=== PATIENT | male | born 1925 | race Caucasian/White ===

== ENCOUNTER 2016-10-03 10:30 | Inpatient (IN) ==
[2016-10-03] MEDS ORDERED: Pantoprazole 40 MG VIAL IVP ONE (10:59)
--- NOTE | 2016-10-03 10:59 | Emergency Department Note ---
START Narrative - START START: Patient presents from home with and son for evaluation of rectal bleeding. The patient has Hx of dementia and is very quiet / reserved. He will answer questions with "thumbs up" or a turning of the head, but does not talk unless his son reminds him to "use words." Patient's provides the majority of the history. She states that yesterday at a restaurant the patient got up and there was blood on the chair and on his pants. He has had no complaints of pain and denies diarrhea. His states that two days ago he had diarrhea but had non yesterday or today. Patient denies pain, nausea or vomiting. He has had no recent fever per family. He has not had anything to eat today. On exam he is mildly hypertensive with normal pulse rate. He has an irregularly irregular rhythm. His O2 sats are a little low; breath sounds are clear with the exception of faint crackles in the bases - bilaterally. Abdomen is soft, non- tender, non-distended, without guarding. Bowel sounds are hyperactive x 4 quads. He moves all four extremities and has no peripheral edema. He will require lab testing. Case was discussed with the oncoming provider, Dr. Qureshi. He will take over care of the patient.
--- NOTE | 2016-10-03 11:10 | Emergency Department Note ---
Disposition Clinical Impression: Frail elderly, Elevated troponin, Atrial fibrillation, Abnormal liver function tests, Lower gastrointestinal hemorrhage, Abdominal pain, Thrombocytopenia, Hyperkalemia, Prostatic disease, Pleural effusion, Bladder wall thickening, Left bundle branch block Disposition: Admitted As Inpatient Referrals: NO,PCP [Non-Partnered Physician] - Forms: ED Satisfaction Letter General Adult HPI - General Chief complaint: ED GI Bleed Stated complaint: Rectal Bleeding Time Seen by Provider: 10/03/16 10:38 Source: patient, family Limitations: no limitations - History of Present Illness HPI Narrative: 89-year-old male reports to the emergency department, there is concern for bright red blood per rectum which started last evening. The patient does not take blood thinners. He denies any abdominal pain or vomiting. The family noticed bright red blood on his pants and the CT he was sitting on and they described a "pool of blood". I spoke with a physician friend of theirs who thought the patient could be watched at home but there has been some recurrent bleeding so the family brought the patient in for evaluation. Patient denies any chest pain or shortness of breath. There is no history of fall or trauma. The patient has had no acute confusion. No difficulty moving the arms or legs independently. Is no history of back pain fever or cough. Essentially bright red blood per rectum is the main complaint. No other complaints or concerns are noted. Pain Scale: 0 - Related Data Home Medications Medication Instructions Recorded Confirmed Atorvastatin [Lipitor] 10 mg PO HS 01/28/16 05/04/16 Donepezil HCl [Donepezil HCl Odt] 10 mg PO HS 01/28/16 05/04/16 Irbesartan [Avapro] 150 mg PO DAILY 01/28/16 05/04/16 Losartan [Cozaar] 25 mg PO DAILY 01/28/16 05/04/16 Memantine [Namenda] 10 mg PO DAILY 01/28/16 05/04/16 Metoprolol [Lopressor] 25 mg PO DAILY 01/28/16 05/04/16 Multivitamin/Iron/Folic Acid 1 each PO DAILY 01/28/16 05/04/16 [Centrum Complete Multivit Tab] Omeprazole [PriLOSEC] 20 mg PO DAILY 01/28/16 05/04/16 [place]-3/Dha/Epa/Fish Oil [Fish Oil 1 each PO DAILY 05/04/16 05/04/16 1,000 mg Softgel] Tri-B 1 each PO DAILY 05/04/16 05/04/16 Previous Rx's Medication Instructions Recorded Nitrofurantoin (BID) [Macrobid] 100 mg PO BID #28 capsule 05/08/16 Cephalexin [Keflex] 500 mg PO QID 10 Days 08/18/16 Allergies Allergy/AdvReac Type Severity Reaction Status Date / Time levofloxacin [From Levaquin] Allergy See Verified 01/20/16 13:09 Comments All systems ED: reviewed and negative except as stated. Past Medical History - Past Medical History Medical history: Reports: atrial fibrillation, CVA, dementia, hypertension, other Psychiatric history: Reports: no psych history - Social History Smoking Status: Former smoker Smokeless Tobacco Status: No Alcohol use: Reports: rarely Drug use: Reports: none Physical Exam - General Limitations: no limitations General appearance: alert, in no apparent distress - Head Head exam: atraumatic, normocephalic, normal inspection - Eye Eye exam: Present: normal appearance, EOMI, miosis - ENT ENT exam: normal exam, normal oropharynx, mucous membranes moist, normal external ear exam - Neck Neck exam: Present: normal inspection, full ROM, trachea midline. Absent: tenderness - Chest Chest inspection: Present: symmetric chest wall rise. Absent: tenderness - Respiratory Respiratory exam: Present: normal lung sounds bilaterally. Absent: respiratory distress - Cardiovascular Cardiovascular exam: Present: regular rate, irregular rhythm - Abdominal Exam Abdominal exam: Present: soft, tenderness. Absent: distention, guarding, rebound, rigidity Abdominal tenderness: Present: LLQ, suprapubic, moderate - Rectal Exam Rectal exam: Present: normal rectal tone, heme (+) stool, hemorrhoids, other - Male exam: Present: scrotal swelling (The patient appears to have internal hemorrhoids. Not fully prolapsed but palpable, no active bleeding appreciated.) - Extremities Exam Extremities exam: Present: normal inspection, full ROM, normal capillary refill. Absent: tenderness, pedal edema, joint swelling, calf tenderness - Expanded Lower Extremity Exam Lower leg exam: Absent: Homans' sign - Back Exam Back exam: Present: normal inspection, full ROM. Absent: tenderness, CVA tenderness (R), CVA tenderness (L), vertebral tenderness - Neurological Exam Neurological exam: Present: alert, oriented X3, CN II-XII intact. Absent: motor sensory deficit - Psychiatric Psychiatric exam: Present: normal affect, normal mood - Skin Skin exam: Present: warm, dry, intact, normal color, pallor. Absent: rash, cyanosis, diaphoresis, erythema, mottled Course Vital Signs Temperature 97.0 F L 10/03/16 10:31 Pulse Rate 70 10/03/16 10:31 Respiratory Rate 16 10/03/16 10:31 Blood Pressure 148/90 10/03/16 10:31 O2 Sat by Pulse Oximetry 94 L 10/03/16 10:31 Temperature 97.0 F L 10/03/16 10:31 Pulse Rate 69 10/03/16 12:55 Respiratory Rate 15 10/03/16 12:55 Blood Pressure 172/86 10/03/16 12:55 O2 Sat by Pulse Oximetry 97 10/03/16 12:55 Oxygen Delivery Oxygen Delivery Nasal Cannula Medical Decision Making - MDM Narrative Medical decision making narrative: Patient is apparently stable from a GI bleeding standpoint, his hemoglobin is negative. He had some abdominal pain, CT was initiated and there are pleural effusions noted on the coke drawer film, substance CT was obtained to evaluate further. The patient appears to have bilateral pleural effusions, his BNP is very high. He is somewhat hypoxemic. The patient also has abnormalities noted on his prostate which may be affecting the bladder. His liver function tests are abnormal which may be related. The patient has new onset EKG changes with an elevated troponin and apparent new left bundle-branch block, the Scarb[place] criteria is negative. The patient denies any chest pain. Given he has had some rectal bleeding we will defer antiplatelet therapy to the hospitalist. Based on his age, frailty, and multiple acute findings, I thought it would be appropriate to admit the patient to the hospital. The effusions may be secondary to CHF or possible malignancy. They did not appear to be infectious in nature based on his testing and vital signs. Antibiotic therapy was not initiated. Blood cultures were ordered. I consulted the hospitalist on-call. - Lab Data Lab results reviewed: Yes I reviewed the patient's lab results. Result diagrams: 10/03/16 11:19 10/03/16 11:19 Lab Results 10/03/16 10/03/16 10/03/16 Range/Units 11:17 11:19 11:19 WBC 5.5 (4.3-11.1) K/mcL RBC 4.52 (4.19-5.50) M/mcL Hgb 15.5 (12.9-16.9) g/dL Hct 46.9 (37.5-50.1) % MCV 103.8 H (83.0-100.0) fL MCH 34.3 H (28.0-33.3) pg MCHC 33.0 (31.6-35.5) g/dL RDW 14.3 (11.5-14.5) % Plt Count 132 L (140-400) K/mcL MPV 10.1 (9.4-12.4) fL Immature Gran % 0.2 (0-4) % Seg Neutrophils % 53.2 % Lymphocytes % 32.1 % Monocytes % 8.6 % Eosinophils % 4.6 % Basophils % 1.3 % Neutrophils # 2.9 (1.6-8.9) K/mcL Lymphocytes # 1.8 (0.6-4.6) K/mcL Monocytes # 0.5 (0.0-1.3) K/mcL Eosinophils # 0.3 (0.0-0.6) K/mcL Basophils # 0.1 (0.0-0.2) K/mcL PT 13.1 H (9.4-12.1) Seconds INR 1.2 APTT 33.4 (26.0-36.0) Seconds Sodium (136-145) mEq/L Potassium (3.5-4.5) mEq/L Chloride (98-109) mEq/L Carbon Dioxide (19-29) mEq/L BUN (8-26) mg/dL Creatinine (0.72-1.25) mg/dL Est GFR ( Amer) (> 60) Est GFR (Non-Af Amer) (> 60) BUN/Creatinine Ratio (6-26) Glucose (70-99) mg/dL Calculated Osmolality (280-300) Lactic Acid (0.5-2.2) mmol/L Calcium (8.6-10.8) mg/dL Magnesium (1.6-2.6) mg/dL Total Bilirubin (0.2-1.2) mg/dL Direct Bilirubin 0.7 H (0.0-0.5) mg/dL AST (5-34) Units/L ALT (0-55) Units/L Alkaline Phosphatase (38-126) Units/L Troponin I (0-0.03) ng/mL C-Reactive Protein (Less than 5) mg/L B-Natriuretic Peptide (0-100) pg/mL Serum Total Protein (6.0-8.3) g/dL Albumin (3.5-5.0) g/dL Globulin (2.4-3.5) g/dL Albumin/Globulin Ratio (1.1-2.2) Lipase (8-78) Units/L Stool Occult Blood (Negative) Blood Type Antibody Screen 10/03/16 10/03/16 10/03/16 Range/Units 11:19 11:19 11:19 WBC (4.3-11.1) K/mcL RBC (4.19-5.50) M/mcL Hgb (12.9-16.9) g/dL Hct (37.5-50.1) % MCV (83.0-100.0) fL MCH (28.0-33.3) pg MCHC (31.6-35.5) g/dL RDW (11.5-14.5) % Plt Count (140-400) K/mcL MPV (9.4-12.4) fL Immature Gran % (0-4) % Seg Neutrophils % % Lymphocytes % % Monocytes % % Eosinophils % % Basophils % % Neutrophils # (1.6-8.9) K/mcL Lymphocytes # (0.6-4.6) K/mcL Monocytes # (0.0-1.3) K/mcL Eosinophils # (0.0-0.6) K/mcL Basophils # (0.0-0.2) K/mcL PT (9.4-12.1) Seconds INR APTT (26.0-36.0) Seconds Sodium 145 (136-145) mEq/L Potassium 4.9 H (3.5-4.5) mEq/L Chloride 109 (98-109) mEq/L Carbon Dioxide 28 (19-29) mEq/L BUN 20 (8-26) mg/dL Creatinine 1.10 (0.72-1.25) mg/dL Est GFR ( Amer) > 60 (> 60) Est GFR (Non-Af Amer) > 60 (> 60) BUN/Creatinine Ratio 18 (6-26) Glucose 97 (70-99) mg/dL Calculated Osmolality 303 H (280-300) Lactic Acid (0.5-2.2) mmol/L Calcium 9.9 (8.6-10.8) mg/dL Magnesium 1.8 (1.6-2.6) mg/dL Total Bilirubin 1.6 H (0.2-1.2) mg/dL Direct Bilirubin (0.0-0.5) mg/dL AST 44 H (5-34) Units/L ALT 31 (0-55) Units/L Alkaline Phosphatase 184 H (38-126) Units/L Troponin I (0-0.03) ng/mL C-Reactive Protein 2 (Less than 5) mg/L B-Natriuretic Peptide 804 H (0-100) pg/mL Serum Total Protein 7.1 (6.0-8.3) g/dL Albumin 3.3 L (3.5-5.0) g/dL Globulin 3.8 H (2.4-3.5) g/dL Albumin/Globulin Ratio 0.9 L (1.1-2.2) Lipase 24 (8-78) Units/L Stool Occult Blood (Negative) Blood Type A POSITIVE Antibody Screen NEGATIVE 10/03/16 10/03/16 10/03/16 Range/Units 11:21 11:46 12:25 WBC (4.3-11.1) K/mcL RBC (4.19-5.50) M/mcL Hgb (12.9-16.9) g/dL Hct (37.5-50.1) % MCV (83.0-100.0) fL MCH (28.0-33.3) pg MCHC (31.6-35.5) g/dL RDW (11.5-14.5) % Plt Count (140-400) K/mcL MPV (9.4-12.4) fL Immature Gran % (0-4) % Seg Neutrophils % % Lymphocytes % % Monocytes % % Eosinophils % % Basophils % % Neutrophils # (1.6-8.9) K/mcL Lymphocytes # (0.6-4.6) K/mcL Monocytes # (0.0-1.3) K/mcL Eosinophils # (0.0-0.6) K/mcL Basophils # (0.0-0.2) K/mcL PT (9.4-12.1) Seconds INR APTT (26.0-36.0) Seconds Sodium (136-145) mEq/L Potassium (3.5-4.5) mEq/L Chloride (98-109) mEq/L Carbon Dioxide (19-29) mEq/L BUN (8-26) mg/dL Creatinine (0.72-1.25) mg/dL Est GFR ( Amer) (> 60) Est GFR (Non-Af Amer) (> 60) BUN/Creatinine Ratio (6-26) Glucose (70-99) mg/dL Calculated Osmolality (280-300) Lactic Acid 1.1 (0.5-2.2) mmol/L Calcium (8.6-10.8) mg/dL Magnesium (1.6-2.6) mg/dL Total Bilirubin (0.2-1.2) mg/dL Direct Bilirubin (0.0-0.5) mg/dL AST (5-34) Units/L ALT (0-55) Units/L Alkaline Phosphatase (38-126) Units/L Troponin I 0.04 H* (0-0.03) ng/mL C-Reactive Protein (Less than 5) mg/L B-Natriuretic Peptide (0-100) pg/mL Serum Total Protein (6.0-8.3) g/dL Albumin (3.5-5.0) g/dL Globulin (2.4-3.5) g/dL Albumin/Globulin Ratio (1.1-2.2) Lipase (8-78) Units/L Stool Occult Blood Positive A (Negative) Blood Type Antibody Screen - Radiology Data Radiology results reviewed: Yes I reviewed the patient's radiology results.
[2016-10-03 11:29] LABS: Basophils # 0.1 K/mcL (0.0-0.2); Basophils % 1.3 %; Eosinophils # 0.3 K/mcL (0.0-0.6); Eosinophils % 4.6 %; Hematocrit 46.9 % (37.5-50.1); Hemoglobin 15.5 g/dL (12.9-16.9); Immature Granulocytes % 0.2 % (0-4); Lymphocytes # 1.8 K/mcL (0.6-4.6); Lymphocytes % 32.1 %; Mean Corpuscular Hemoglobin 34.3 pg (28.0-33.3); Mean Corpuscular Volume 103.8 fL (83.0-100.0); Mean Platelet Volume 10.1 fL (9.4-12.4); Monocytes # 0.5 K/mcL (0.0-1.3); Monocytes % 8.6 %; Neutrophils # 2.9 K/mcL (1.6-8.9); Platelet Count 132 K/mcL (140-400); Red Blood Count 4.52 M/mcL (4.19-5.50); Red Cell Distribution Width 14.3 % (11.5-14.5); Segmented Neutrophils % 53.2 %
[2016-10-03 11:32] LABS: INR 1.2; Prothrombin Time 13.1 Seconds (9.4-12.1)
[2016-10-03 11:35] LABS: Activated Partial Thrombo Time 33.4 Seconds (26.0-36.0)
[2016-10-03 11:38] LABS: Alanine Aminotransferase 31 Units/L (0-55); Albumin 3.3 g/dL (3.5-5.0); Albumin/Globulin Ratio 0.9 (1.1-2.2); Alkaline Phosphatase 184 Units/L (38-126); Aspartate Amino Transferase 44 Units/L (5-34); BUN/Creatinine Ratio 18 (6-26); Bilirubin,Total 1.6 mg/dL (0.2-1.2); Blood Urea Nitrogen 20 mg/dL (8-26); Calcium 9.9 mg/dL (8.6-10.8); Carbon Dioxide 28 mEq/L (19-29); Chloride 109 mEq/L (98-109); Globulin 3.8 g/dL (2.4-3.5); Glucose 97 mg/dL (70-99); Magnesium 1.8 mg/dL (1.6-2.6); Osmolality,Calculated 303 (280-300); Potassium 4.9 mEq/L (3.5-4.5); Sodium 145 mEq/L (136-145); Total Protein 7.1 g/dL (6.0-8.3); eGFR For African Americans > 60 (> 60); eGFR For Non-African Americans > 60 (> 60)
[2016-10-03 11:56] LABS: C-Reactive Protein 2 mg/L (Less than 5); Lipase 24 Units/L (8-78)
[2016-10-03] MEDS ORDERED: Ondansetron 4 MG/2 ML VIAL IVP PRN (16:24)
[2016-10-03] MEDS ORDERED: Naloxone 0.4 MG/ML INJ IVP PRN (16:24)
[2016-10-03] MEDS ORDERED: Acetaminophen 325 MG TABLET PO PRN (16:24)
[2016-10-03 17:52] LABS: Basophils % 0.8 %; Eosinophils # 0.2 K/mcL (0.0-0.6); Eosinophils % 3.7 %; Hematocrit 45.1 % (37.5-50.1); Hemoglobin 14.7 g/dL (12.9-16.9); Immature Platelets 2.7 % (1.1-6.1); Lymphocytes # 1.7 K/mcL (0.6-4.6); Lymphocytes % 34.9 %; Mean Corpuscular HGB Conc 32.6 g/dL (31.6-35.5); Mean Corpuscular Hemoglobin 33.8 pg (28.0-33.3); Mean Corpuscular Volume 103.7 fL (83.0-100.0); Mean Platelet Volume 10.2 fL (9.4-12.4); Monocytes # 0.4 K/mcL (0.0-1.3); Monocytes % 7.1 %; Neutrophils # 2.6 K/mcL (1.6-8.9); Platelet Count 140 K/mcL (140-400); Red Blood Count 4.35 M/mcL (4.19-5.50); Red Cell Distribution Width 14.2 % (11.5-14.5); Segmented Neutrophils % 53.5 %
--- NOTE | 2016-10-03 19:07 | Internal Med History&Physical ---
Date of Encounter: 10/03/16 Time of Encounter: 15:15 Assessment and Plan (1) Lower gastrointestinal hemorrhage Current visit: Yes Status: Acute No further episodes of hematochezia since presenting to the ER. Continue to monitor for active bleed, patient likely had hemorrhoids or diverticular bleed that was self-limiting. Monitor CBC every 8 hourly. Full liquid diet as tolerated. Not on anticoagulation. (2) Pleural effusion Current visit: Yes Status: Acute Noted to have bilateral pleural effusion, cardiomegaly and pulmonary edema on CT chest. However, patient remains asymptomatic. We will evaluate for new onset CHF. Start low-dose IV Lasix, monitor urine output, fluid restriction. Check 2-D echocardiogram to assess LVEF; (3) Atrial fibrillation Current visit: Yes Status: Chronic Continue rate control with beta svetlana. 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 Qualifiers: Atrial fibrillation type: chronic Qualified Code(s): I48.2 - Chronic atrial fibrillation (4) Bladder wall thickening Current visit: Yes Status: Acute Noted to have posterior lateral bladder wall thickening on CT abdomen, which is a nonspecific finding. Patient has no urinary complaints at this time. Requires outpatient urology follow-up. (5) Elevated troponin Current visit: Yes Status: Acute Likely related to demand ischemia and an episode of GI bleed. Continue telemetry monitoring and trend troponins. No reported chest pain. Follow-up 2- D echocardiogram. (6) Dementia Current visit: Yes Status: Chronic Qualifiers: Dementia type: Alzheimer's disease Dementia behavioral disturbance: without behavioral disturbance Qualified Code(s): G30.0 - Alzheimer's disease with early onset; F02.80 - Dementia in other diseases classified elsewhere without behavioral disturbance Internal Medicine - H&P: HPI Chief complaint: Rectal bleed Admitted From: Emergency Dept Plans for Post Hospital Care: Home History of present illness: Mr. 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 Patient was apparently having dinner with the family friend last night when a big pool of bright red blood was noticed on his chair after he got up. He had no further episodes of bleeding, no complaints of abdominal pain, nausea, vomiting. No reported melena or hematemesis. No previous history of GI bleed, not noted to be on anticoagulants. He had colonoscopy several years back, which was noted to be normal according to the patient's . Patient does have underlying dementia and is unable to provide complete history , which is obtained with the help of his at bedside. Patient's reports that he has no complaints of chest pain, exertional dyspnea, orthopnea or leg swelling for the last few weeks. Past Med Surg Social Fam HX - Past Medical History Medical history: atrial fibrillation, CVA, dementia, hypertension, other Psychiatric history: no psych history - Past Surgical History Surgical History: other (Aortic aneurysm repair) - Social History Smoking Status: Former smoker Smokeless Tobacco Status: No Alcohol use: rarely Drug use: none Occupational status: retired Current living situation: Home, With Family Activity Level: Independent ambulation Recent Out of Country Travel Within the Last 8 Weeks: No Exposure or Possible Exposure to Illness During Travel: No - Family History Father History Unknown: Yes Hx Family Cardiac Disorders: Yes ([place]) Internal Medicine - H&P: Meds Atorvastatin [Lipitor] 10 mg PO HS 01/28/16 [History] Donepezil HCl [Donepezil HCl Odt] 10 mg PO HS 01/28/16 [History] Irbesartan [Avapro] 150 mg PO DAILY 01/28/16 [History] Losartan [Cozaar] 25 mg PO BID 01/28/16 [History] Memantine [Namenda] 10 mg PO BID 01/28/16 [History] Metoprolol [Lopressor] 12.5 mg PO DAILY 01/28/16 [History] Multivitamin/Iron/Folic Acid [Centrum Complete Multivit Tab] 1 tab PO DAILY 12/10 [History] Omeprazole [PriLOSEC] 20 mg PO DAILY 01/28/16 [History] [place]-3/Dha/Epa/Fish Oil [Fish Oil 1,000 mg Softgel] 1,000 mg PO DAILY 05/04/16 [History] Cyanocobalamin (Vitamin B-12) [Vitamin B-12] 100 mcg PO DAILY 10/03/16 [History] LevETIRAcetam [Levetiracetam] 500 mg PO BID 10/03/16 [History] Levothyroxine [Synthroid] 100 mcg PO DAILY 10/03/16 [History] Pyridoxine HCl [Vitamin B-6] 100 mg PO DAILY 10/03/16 [History] Tamsulosin HCl [Flomax] 0.4 mg PO DAILY 10/03/16 [History] Allergies levofloxacin [From Levaquin] Allergy (Verified 10/03/16 14:23) See Comments PATIENT, AND SON ARE ALL UNSURE OF REACTION- All Systems PM: A 10-system review of systems was performed and is negative for pertinent findings except as documented above in the HPI. - Constitutional Constitutional: no chills, no fever(s), no night sweats - EENT Eyes: no change in vision, no discharge, no pain, no photophobia Ears: no ear discharge, no ear pain, no tinnitus Nose, mouth and throat: no dysphagia, no nasal discharge, no neck pain, no sore throat - Cardiovascular Cardiovascular ROS IM: no chest pain, no diaphoresis, no dyspnea, no lightheadedness, no palpitations, no syncope - Respiratory Respiratory: no cough, no dyspnea, no wheezing, no excessive phlegm production - Gastrointestinal Gastrointestinal: hematochezia - Musculoskeletal Musculoskeletal ROS IM: no numbness, no tingling - Integumentary Integumentary IM: no rash, no unusual bruising - Neurological Neurological ROS: no confusion, no convulsions, no focal weakness, no numbness, no tingling, no tremor(s) - Hematologic/Lymphatic Hematologic/Lymphatic: no easy bruising - Constitutional Vitals: Temp Pulse Resp BP Pulse Ox 97.8 F 64 17 166/97 97 10/03/16 15:55 10/03/16 15:55 10/03/16 15:55 10/03/16 15:55 10/03/16 15:55 General appearance: Present: A&O X 2 - Head Head exam: Present: atraumatic, normocephalic - Neck Neck exam general surgery: Present: supple, trachea midline. Absent: lymphadenopathy - Respiratory Respiratory exam: Present: decreased breath sounds (At right base), CTAB. Absent: accessory muscle use, rales, rhonchi, wheezes - Cardiovascular Cardiovascular exam: Present: irregular rhythm, +S1, +S2. Absent: diastolic murmur, gallop, rubs, systolic murmur - GI/Abdominal GI/Abdominal exam: Present: normal bowel sounds, soft, no peritoneal signs. Absent: distended, tenderness - Extremities Exam Extremities exam: Present: full ROM, warm, radial pulses palpable and symetrical. Absent: calf tenderness, cyanotic, pedal edema - Neurological Exam Neurological exam: Present: CN II-XII intact, oriented X3, no focal deficits. Absent: pronater drift, facial droop, speech deficit - Skin Skin exam: Present: dry, intact Internal Med - H&P Results - Labs CBC & Chem 7: 10/04/16 05:03 10/04/16 05:03 Labs: Short CBC 10/03/16 Range/Units 17:42 WBC 4.9 (4.3-11.1) K/mcL Hgb 14.7 (12.9-16.9) g/dL Hct 45.1 (37.5-50.1) % Plt Count 140 (140-400) K/mcL Neutrophils # 2.6 (1.6-8.9) K/mcL Cardiac Enzymes 10/03/16 Range/Units 17:42 Troponin I 0.02 (0-0.03) ng/mL - EKG Data -: EKG Interpreted by Myself - EKG Data EKG comments: 10/04/16 18:50 atrial fibrillation, new LBBB from previous EKG, LAD
[2016-10-03] MEDS: Furosemide 20 MG/2 ML VIAL IVP SCH (20:45)
[2016-10-03] MEDS: levETIRAcetam 250 MG TABLET PO SCH (20:45)
[2016-10-04 05:48] LABS: BUN/Creatinine Ratio 18 (6-26); Blood Urea Nitrogen 16 mg/dL (8-26); Calcium 9.3 mg/dL (8.6-10.8); Carbon Dioxide 27 mEq/L (19-29); Chloride 107 mEq/L (98-109); Cholesterol 165 mg/dL (< 200); Glucose 85 mg/dL (70-99); HDL Cholesterol 41 mg/dL (40-59); LDL Cholesterol,Calculated 109 mg/dL (0-99); Osmolality,Calculated 298 (280-300); Sodium 144 mEq/L (136-145); Triglycerides 75 mg/dL (< 150); eGFR For African Americans > 60 (> 60); eGFR For Non-African Americans > 60 (> 60)
[2016-10-04 05:49] LABS: Potassium 3.8 mEq/L (3.5-4.5)
[2016-10-04] MEDS: Pantoprazole 40 MG VIAL IVP SCH (08:27)
[2016-10-04] MEDS: Furosemide 20 MG/2 ML VIAL IVP SCH ×2 (08:27→19:48)
[2016-10-04] MEDS: Pyridoxine (B-6) 50 MG TABLET PO SCH (08:28)
[2016-10-04] MEDS: levETIRAcetam 250 MG TABLET PO SCH ×2 (08:28→19:48)
[2016-10-04] MEDS: (Cyanocobalamin (Vitamin B-12) [Vitamin B-12] 100 MCG PO SCH (08:29)
[2016-10-04] MEDS: Multivit/Ca/Min/Fe/FA 1 TAB TABLET PO SCH (08:29)
[2016-10-04] MEDS: (Omega-3/Dha/Epa/Fish Oil [Fish Oil 1,000 Mg Softgel] PO SCH (08:29)
[2016-10-04 09:18] LABS: Basophils # 0.1 K/mcL (0.0-0.2); Basophils % 0.9 %; Eosinophils # 0.2 K/mcL (0.0-0.6); Eosinophils % 3.6 %; Hemoglobin 14.7 g/dL (12.9-16.9); Immature Granulocytes % 0.2 % (0-4); Lymphocytes # 1.9 K/mcL (0.6-4.6); Mean Corpuscular HGB Conc 32.7 g/dL (31.6-35.5); Mean Corpuscular Hemoglobin 33.8 pg (28.0-33.3); Mean Corpuscular Volume 103.4 fL (83.0-100.0); Mean Platelet Volume 10.6 fL (9.4-12.4); Monocytes # 0.5 K/mcL (0.0-1.3); Neutrophils # 3.8 K/mcL (1.6-8.9); Platelet Count 141 K/mcL (140-400); Red Blood Count 4.35 M/mcL (4.19-5.50); Segmented Neutrophils % 59.3 %
--- NOTE | 2016-10-04 09:18 | Internal Med Progress Note ---
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 due to h/o- hemorrhagic stroke; Qualifiers: Atrial fibrillation type: chronic Qualified Code(s): I48.2 - Chronic atrial fibrillation (3) Elevated troponin Current Visit: Yes Status: Acute Assessment and plan: trending down; no episodes of chest pain; likely due to demand ischemia and stress; f/up Echocardiogram; (4) CVA (cerebral vascular accident) Current Visit: No Status: Inactive Qualifiers: CVA mechanism: unspecified Qualified Code(s): I63.9 - Cerebral infarction, unspecified (5) BPH (benign prostatic hyperplasia) Current Visit: Yes Status: Chronic Qualifiers: Prostatic enlargement morphology: unspecified morphology Lower urinary tract symptom presence: symptoms present Qualified Code(s): N40.1 - Benign prostatic hyperplasia with lower urinary tract symptoms (6) Bladder wall thickening Current Visit: Yes Status: Acute Assessment and plan: nonspecific CT abdomen finding of posterolateral bladder wall thickening; may need cystoscopy and biopsy as out patient; (7) Pleural effusion Current Visit: Yes Status: Chronic Assessment and plan: CT finding of pleural effusions and cardiomegaly; patient responding well to IV Lasix, has good urine output; continue the same; patient is asymptomatic and not hypoxic; BP noted to be poorly controlled; will start Procardia XL; (8) Essential hypertension Current Visit: Yes Status: Chronic Assessment and plan: plan as above; - Subjective Interval history: Denies any c/o- abdominal pain, chest pain, dyspnea; unsure if he had any further rectal bleeding in the hospital; no reported fever, nausea, vomiting; - Constitutional Vitals: Temp Pulse Resp BP Pulse Ox 98.2 F 80 16 164/108 97 10/04/16 07:08 10/04/16 07:08 10/04/16 07:08 10/04/16 07:08 10/04/16 07:08 General appearance: Present: cooperative, A&O X 2 - Respiratory Respiratory exam: Present: decreased breath sounds (slightly decreased at right base), CTAB. Absent: accessory muscle use, rales, rhonchi, wheezes - Cardiovascular Cardiovascular exam: Present: RRR, +S1, +S2. Absent: diastolic murmur, gallop, rubs, systolic murmur - GI/Abdominal GI/Abdominal exam: Present: normal bowel sounds, soft (nontender), no peritoneal signs. Absent: distended, tenderness Internal Medicine: Result - Labs CBC & Chem 7: 10/05/16 04:36 10/04/16 05:03 Labs: Short CBC 10/03/16 Range/Units 17:42 WBC 4.9 (4.3-11.1) K/mcL Hgb 14.7 (12.9-16.9) g/dL Hct 45.1 (37.5-50.1) % Plt Count 140 (140-400) K/mcL Neutrophils # 2.6 (1.6-8.9) K/mcL BMP 10/04/16 05:03 Sodium 144 Potassium 3.8 D Chloride 107 Carbon Dioxide 27 BUN 16 Creatinine 0.89 Glucose 85 Calcium 9.3 Cardiac Enzymes 10/03/16 10/03/16 10/04/16 Range/Units 17:42 22:38 05:03 Troponin I 0.02 0.03 0.03 (0-0.03) ng/mL - ABG Interpretation ABG results: PT/INR, D-dimer PT 13.1 Seconds (9.4-12.1) H 10/03/16 11:19 Consult Discharge Plan - Plan Referrals: Kvng Conrad MD [Primary Care Provider] - 10/12/16 4:00 pm
[2016-10-04] MEDS: NIFEdipine XL (24 HR) 30 MG TAB.ER.24 PO SCH (10:50)
--- NOTE | 2016-10-04 14:27 | ECHO - Doppler Report ---
Echocardiogram Name: Jarod Rahman Date of Study: 10/04/2016 Date: 1925 Ht: 70.0 in Medical Record#: [id number] Age: 89 Wt: 145.0 lb Gender: Male BSA: 1.82 Order #: [id number] Location: [facility] Room #: 2NE27 Reading Physician: Kristie Hardwick DO Patient Observation Assistant: Hoda Acosta Ordering Physician: Pricilla Rea MD Primary Physician: Kvng Conrad MD Indications: Pleural Effusion, Pulmonary edema, EKG changes Impressions: Technically challenging study. Patient was unable to position for exam. Overall, LV systolic function appears low normal, EF 50%. Mild LV concentric hypertrophy. Atypical septal motion. RV is not well visualized. Mild aortic regurgitation. Mild to moderate tricuspid regurgitation. IVC is not visualized to estimate RVSP. Left Ventricular Wall Motion: Rest Echo Findings The apex, apical inferior, mid inferior, basal inferior, apical anterior, mid anterior and basal anterior lawrence were not visualized. All other wall segments showed normal motion. Findings: Study Quality * Technically sub-optimal due to clinical status. Patient supine for exam with head of bed elevated. ECG Findings * Atrial fibrillation. BBB. Left Ventricle * Mild concentric left ventricular hypertrophy. * Atypical septal motion. * Indeterminate diastolic function. * LVEF 50%. Left Atrium * Severely dilated left atrium. Mitral Valve * Trace mitral regurgitation. * Mildly calcified mitral valve leaflets. * No mitral stenosis. Aortic Valve * Aortic valve not well visualized. * No aortic stenosis. * Mild aortic regurgitation. Tricuspid Valve * Tricuspid valve not well visualized. * Mild-moderate tricuspid regurgitation. Pulmonic Valve * Pulmonic valve is not well visualized. * No pulmonic stenosis. * Trace pulmonic regurgitation. Pulmonary Artery * Pulmonary artery not well visualized. Right Atrium * Severely dilated right atrium. Right Ventricle * Not well evaluated. Pericardium * There is no pericardial effusion present. Pleural Effusion * Moderate pleural effusion. Aorta * Not well visualized. IVC * The IVC is not well evaluated. Interatrial Septum * Interatrial septum not well evaluated. History Hypertension Family History of CAD 04/04/2015 a Previous Echo was performed. Measurements: BP: 164/ 108 2D Normal Values IVSd: 1.08 cm 0.6 - 1.0 cm LVIDd: 4.72 cm 3.7 - 5.6 cm LVPWd: 1.07 cm 0.6 - 1.1 cm LVIDs: 2.90 cm 1.5 - 3.6 cm AO: 2.50 cm < 4.0 cm LA: 4.80 cm 2.0 - 4.0cm %FS: 38.60 cm >25 % LVOT Diam: 2.00 cm LA volume: 38 Mitral Valve Peak E:.56 m/sec Peak E' Lat John:7.14 cm/s Peak E' Med John:7.61 cm/s E/E' Lat Ratio:7.9 E/E' Med Ratio:7.4 Aortic Valve AI pressure Half-time: 885.00 msec Tricuspid Valve TV Regurg Peak Grad: 31.00mmHg TV Regurg Peak John: 2.80m/sec Updated by Kristie Hardwick on 10/04/2016 2:21:40 PM electronically signed on 10/04/2016 2:23:24 PM with status of Final Wall Motion [place]: 1=Normal, 2=Hypokinesis, 3=Akinesis, 4=Dyskinesis, 5=Aneurysmal, 6=Hyperkinetic, X=Not Visualized (Blank)=Missing
[2016-10-05 05:15] LABS: Basophils % 0.7 %; Eosinophils % 0.2 %; Hematocrit 39.6 % (37.5-50.1); Hemoglobin 13.8 g/dL (12.9-16.9); Immature Granulocytes % 0.4 % (0-4); Lymphocytes # 0.8 K/mcL (0.6-4.6); Lymphocytes % 17.1 %; Mean Corpuscular HGB Conc 34.8 g/dL (31.6-35.5); Mean Corpuscular Hemoglobin 34.8 pg (28.0-33.3); Mean Corpuscular Volume 99.7 fL (83.0-100.0); Mean Platelet Volume 10.3 fL (9.4-12.4); Monocytes # 0.2 K/mcL (0.0-1.3); Monocytes % 5.3 %; Neutrophils # 3.5 K/mcL (1.6-8.9); Platelet Count 114 K/mcL (140-400); Red Blood Count 3.97 M/mcL (4.19-5.50); Red Cell Distribution Width 13.8 % (11.5-14.5); Segmented Neutrophils % 76.3 %
--- NOTE | 2016-10-05 07:45 | Internal Med Progress Note ---
Date of Encounter: 10/05/16 Time of Encounter: 07:43 - Assessment and plan (1) Lower gastrointestinal hemorrhage Current Visit: Yes Status: Acute Assessment and plan: one episode of rectal bleeding; likely hemorrhoidal or diverticular; no further episodes since admission; 2g drop in Hb but stable, no indication for transfusion; no evidence of severe hemorrhage; tolerates oral diet; may need colonoscopy as outpatient; (2) Pleural effusion Current Visit: Yes Status: Chronic Assessment and plan: CT finding of pleural effusions and cardiomegaly; patient responding well to IV Lasix, has good urine output; change to low dose oral Lasix; patient is asymptomatic and not hypoxic; Echocardiogram noted to show mildly decreased EF at 50%, LVH, mild-moderate TR; discussed findings with family, patient does have cardiac history per daughter and follows with Cardiology as outpatient; recommend to continue the same; (3) Atrial fibrillation Current Visit: Yes Status: Chronic Assessment and plan: continue beta-svetlana; rate-controlled; not on mcc anticoagulation due to h/o- hemorrhagic stroke; Qualifiers: Atrial fibrillation type: chronic Qualified Code(s): I48.2 - Chronic atrial fibrillation (4) Bladder wall thickening Current Visit: Yes Status: Acute Assessment and plan: nonspecific CT abdomen finding of posterolateral bladder wall thickening; Urology consult noted, outpatient cystoscopy; recommend checking Urinalysis with reflex culture; patient likely has balanitis, to observe for now, no indication for antibiotics, no penile purulent discharge; (5) Elevated troponin Current Visit: Yes Status: Resolved (6) Dementia Current Visit: Yes Status: Chronic Assessment and plan: PT evaluation noted, recommend ECF placement; family in agreement; social service liaison to follow; Qualifiers: Dementia type: Alzheimer's disease Alzheimer's disease onset: late-onset Dementia behavioral disturbance: without behavioral disturbance Qualified Code (s): G30.1 - Alzheimer's disease with late onset; F02.80 - Dementia in other diseases classified elsewhere without behavioral disturbance (7) CHF (congestive heart failure) Current Visit: Yes Status: Chronic Assessment and plan: continue beta-svetlana, ARB, diuretic, statin; Qualifiers: Congestive heart failure type: combined Congestive heart failure chronicity : chronic Qualified Code(s): I50.42 - Chronic combined systolic (congestive) and diastolic (congestive) heart failure (8) Essential hypertension Current Visit: Yes Status: Chronic Assessment and plan: will hold Procardia as patient's BP has dropped significantly; continue the remaining home meds; - Subjective Interval history: Denies any c/o- abdominal pain, chest pain, dyspnea, penile pain/discomfort; notified by RN overnight during bedbath that patient has possible penile bleeding and blistering; - Constitutional Vitals: Temp Pulse Resp BP Pulse Ox 98.4 F 89 18 128/73 95 10/05/16 05:53 10/05/16 05:53 10/05/16 05:53 10/05/16 05:53 10/04/16 20:00 General appearance: Present: A&O X 2 (underlying dementia, unreliable historian) - Respiratory Respiratory exam: Present: CTAB. Absent: accessory muscle use, rales, rhonchi, wheezes - Cardiovascular Cardiovascular exam: Present: irregular rhythm, +S1, +S2. Absent: diastolic murmur, gallop, rubs, systolic murmur - GI/Abdominal GI/Abdominal exam: Present: normal bowel sounds, soft, no peritoneal signs. Absent: distended, tenderness - Additional comments: Glans penis pale, crusted blood at the urethral tip with surrounding erythematous blisters; nontender; - Extremities Exam Extremities exam: Present: warm, radial pulses palpable and symetrical. Absent : calf tenderness, cyanotic, pedal edema - Neurological Exam Neurological exam: Present: altered, CN II-XII intact, no focal deficits. Absent: pronater drift, facial droop, speech deficit Internal Medicine: Result - Labs CBC & Chem 7: 10/05/16 04:36 10/04/16 05:03 Labs: Short CBC 10/04/16 10/05/16 Range/Units 05:03 04:36 WBC 6.4 4.6 (4.3-11.1) K/mcL Hgb 14.7 13.8 (12.9-16.9) g/dL Hct 45.0 39.6 (37.5-50.1) % Plt Count 141 114 L (140-400) K/mcL Neutrophils # 3.8 3.5 (1.6-8.9) K/mcL - ABG Interpretation ABG results: PT/INR, D-dimer PT 13.1 Seconds (9.4-12.1) H 10/03/16 11:19 Consult Discharge Plan - Plan Referrals: Kvng Conrad MD [Primary Care Provider] - 10/12/16 4:00 pm
[2016-10-05] MEDS: Pantoprazole 40 MG VIAL IVP SCH (10:03)
[2016-10-05] MEDS: Pyridoxine (B-6) 50 MG TABLET PO SCH (10:03)
[2016-10-05] MEDS: Furosemide 20 MG/2 ML VIAL IVP SCH ×2 (10:04→21:18)
[2016-10-05] MEDS: NIFEdipine XL (24 HR) 30 MG TAB.ER.24 PO SCH (10:04)
[2016-10-05] MEDS: Multivit/Ca/Min/Fe/FA 1 TAB TABLET PO SCH (10:04)
[2016-10-05] MEDS: levETIRAcetam 250 MG TABLET PO SCH ×2 (10:05→21:17)
[2016-10-05] MEDS: (Omega-3/Dha/Epa/Fish Oil [Fish Oil 1,000 Mg Softgel] PO SCH (10:08)
[2016-10-05] MEDS: (Cyanocobalamin (Vitamin B-12) [Vitamin B-12] 100 MCG PO SCH (10:43)
--- NOTE | 2016-10-05 12:20 | Electrocardiograph Report ---
[facility] Test Date: 2016-10-03 Pat Name: Jarod Rahman Department: 102 Room: 2NE27 Gender: M Seismic Survey Assistant: Tia : 1925 Requested By: Pricilla Rea Order Number: [id number] Reading MD: Abel Batista DO Measurements Intervals [place] Rate: 59 P: [place]: 0 QRS: -32 QRSD: 150 T: 118 QT: 467 QTc: 466 Interpretive Statements Atrial fibrillation with slow ventricular response Left axis deviation Left bundle branch block Electronically Signed On 10-05-16 12:19:46 EST by Abel Batista DO
--- NOTE | 2016-10-05 12:35 | Urology - Consult Note ---
Date of Encounter: 10/05/16 Time of Encounter: 12:31 - Assessment and Plan (1) Bladder wall thickening Current Visit: Yes Status: Acute Assessment and plan: 89-year-old man with a history of bladder wall thickening seen on his CT scan. He also has some blood at the meatus. He has not yet undergone a cystoscopy. I recommend doing this as an outpatient. We will coordinate this for him once he is discharged. There are no acute changes on his CT scan in regards to his genitourinary tract. The bladder wall thickening is likely secondary to prostatic hyperplasia. He is status post TURP and seems to be voiding well. (2) Urinary tract infection Current Visit: No Status: Acute Assessment and plan: He has a history of urinary tract infections. I will obtain a a urinalysis and culture today to confirm there is no persistent infection. Thank you for allowing to produce pain in the care of Mr. Rahman. Please call with any questions. Qualifiers: Urinary tract infection type: acute cystitis Hematuria presence: with hematuria Qualified Code(s): N30.01 - Acute cystitis with hematuria Urology CN:TERESA Consult date: 10/05/16 Reason for consult Urology: Other (blood at the meatus) History of present illness: 89-year-old man presents with concern for a GI bleed. He was at a restaurant a few days ago. When he stood up there was blood on his seat. He came to the emergency department for further evaluation. A CT scan of the chest and pelvis showed pleural effusions and an enlarged prostate with bladder wall thickening. He was admitted for further care. I initially saw Mr. Rahman back in December 2015. At that time there was concern for hematuria. He has had intermittent urinary tract infections as well. We did perform a CT scan which showed similar findings back then to his most recent CT. He did have a TURP about 3-4 years ago and there is evidence of a TURP defect on his CT scan. There is no evidence of renal mass. A urinalysis is pending. Mr. Rahman denies any pain with urination. He feels he has a good stream. He denies any recent gross hematuria. However, his nurse noted some blood in his depends near his penis today. Past Med Surg Social Fam HX - Past Medical History Medical history: atrial fibrillation, CVA, dementia, hypertension, other Psychiatric history: no psych history - Past Surgical History Surgical History: other (Aortic aneurysm repair) - Social History Smoking Status: Former smoker Smokeless Tobacco Status: No Alcohol use: rarely Drug use: none - Family History Father History Unknown: Yes Hx Family Cardiac Disorders: Yes (CT) Medications and Allergies Atorvastatin [Lipitor] 10 mg PO HS 01/28/16 [History] Donepezil HCl [Donepezil HCl Odt] 10 mg PO HS 01/28/16 [History] Irbesartan [Avapro] 150 mg PO DAILY 01/28/16 [History] Losartan [Cozaar] 25 mg PO BID 01/28/16 [History] Memantine [Namenda] 10 mg PO BID 01/28/16 [History] Metoprolol [Lopressor] 12.5 mg PO DAILY 01/28/16 [History] Multivitamin/Iron/Folic Acid [Centrum Complete Multivit Tab] 1 tab PO DAILY 12/10 [History] Omeprazole [PriLOSEC] 20 mg PO DAILY 01/28/16 [History] [place]-3/Dha/Epa/Fish Oil [Fish Oil 1,000 mg Softgel] 1,000 mg PO DAILY 05/04/16 [History] Cyanocobalamin (Vitamin B-12) [Vitamin B-12] 100 mcg PO DAILY 10/03/16 [History] LevETIRAcetam [Levetiracetam] 500 mg PO BID 10/03/16 [History] Levothyroxine [Synthroid] 100 mcg PO DAILY 10/03/16 [History] Pyridoxine HCl [Vitamin B-6] 100 mg PO DAILY 10/03/16 [History] Tamsulosin HCl [Flomax] 0.4 mg PO DAILY 10/03/16 [History] Allergies levofloxacin [From Levaquin] Allergy (Verified 10/03/16 14:23) See Comments PATIENT, AND SON ARE ALL UNSURE OF REACTION- Review of Systems - Constitutional no chills, no fever(s) - EENT Nose, mouth and throat: no dizziness - Cardiovascular no chest pain - Respiratory no dyspnea - Gastrointestinal no nausea, no vomiting - Genitourinary hematuria, no flank pain - Musculoskeletal no back pain - Integumentary no erythema, no rash - Neurological no weakness - Psychiatric no suicidal ideation - Hematologic/Lymphatic no easy bleeding - Allergic/Immunologic no wheezing Exam Initial Vital Signs Temp Pulse Resp BP Pulse Ox 97.0 F L 70 16 148/90 94 L 10/03/16 10:31 10/03/16 10:31 10/03/16 10:31 10/03/16 10:31 10/03/16 10:31 - General physical appearance Present: well developed, well nourished - Eyes Absent: icteric - ENT Present: normal nares - Neck Present: trachea midline - Respiratory Present: normal respiratory effort - Cardiovascular Cardiovascular exam IM: RRR - Abdomen Abdomen: Present: soft, non tender - Genitourinary other (? zoon's balanitis along glans with erythematous plaques. Dried blood noted in the meatus.) - Integumentary Present: no rash - Neurologic Present: normal coordination Urology Results - Labs 10/05/16 04:36 10/04/16 05:03 Abnormal lab results RBC 3.97 M/mcL (4.19-5.50) L 10/05/16 04:36 MCH 34.8 pg (28.0-33.3) H 10/05/16 04:36 Plt Count 114 K/mcL (140-400) L 10/05/16 04:36 PT 13.1 Seconds (9.4-12.1) H 10/03/16 11:19 Total Bilirubin 1.6 mg/dL (0.2-1.2) H 10/03/16 11:19 Direct Bilirubin 0.7 mg/dL (0.0-0.5) H 10/03/16 11:17 AST 44 Units/L (5-34) H 10/03/16 11:19 Alkaline Phosphatase 184 Units/L (38-126) H 10/03/16 11:19 B-Natriuretic Peptide 804 pg/mL (0-100) H 10/03/16 11:19 Albumin 3.3 g/dL (3.5-5.0) L 10/03/16 11:19 Globulin 3.8 g/dL (2.4-3.5) H 10/03/16 11:19 Albumin/Globulin Ratio 0.9 (1.1-2.2) L 10/03/16 11:19 LDL Cholesterol, Calc 109 mg/dL (0-99) H 10/04/16 05:03 Stool Occult Blood Positive (Negative) A 10/03/16 12:25 All other labs normal. - Imaging CT scan - abdomen: report reviewed, image reviewed CT scan - pelvis: report reviewed, image reviewed Consult Discharge Plan - Plan Referrals: Kvng Conrad MD [Primary Care Provider] -
[2016-10-06 05:16] LABS: Basophils % 0.5 %; Eosinophils # 0.1 K/mcL (0.0-0.6); Eosinophils % 1.5 %; Hematocrit 40.2 % (37.5-50.1); Hemoglobin 13.7 g/dL (12.9-16.9); Immature Granulocytes % 0.3 % (0-4); Lymphocytes # 1.1 K/mcL (0.6-4.6); Mean Corpuscular HGB Conc 34.1 g/dL (31.6-35.5); Mean Corpuscular Hemoglobin 33.8 pg (28.0-33.3); Mean Corpuscular Volume 99.3 fL (83.0-100.0); Mean Platelet Volume 9.8 fL (9.4-12.4); Monocytes # 0.4 K/mcL (0.0-1.3); Monocytes % 9.7 %; Neutrophils # 2.4 K/mcL (1.6-8.9); Platelet Count 110 K/mcL (140-400); Red Blood Count 4.05 M/mcL (4.19-5.50); Red Cell Distribution Width 13.5 % (11.5-14.5)
[2016-10-06 05:31] LABS: BUN/Creatinine Ratio 17 (6-26); Blood Urea Nitrogen 20 mg/dL (8-26); Calcium 8.2 mg/dL (8.6-10.8); Carbon Dioxide 27 mEq/L (19-29); Chloride 101 mEq/L (98-109); Glucose 102 mg/dL (70-99); Osmolality,Calculated 289 (280-300); Potassium 3.3 mEq/L (3.5-4.5); Sodium 138 mEq/L (136-145); eGFR For African Americans > 60 (> 60); eGFR For Non-African Americans 57 (> 60)
[2016-10-06 05:47] LABS: Bilirubin,Urine Negative (Negative); Blood,Urine Trace (Negative); Clarity,Urine Clear (Clear); Color,Urine Yellow (Yellow); Glucose,Urine (UA) Normal (Normal); Ketones,Urine Negative (Negative); Leukocyte Esterase,Urine Negative (Negative); Nitrite,Urine Negative (Negative); PH,Urine 5.5 pH Units (5.0-8.0); Protein,Urine Negative (Neg-Trace); Specific Gravity,Urine 1.012 (1.010-1.025); Urobilinogen,Urine Normal (Normal)
[2016-10-06 05:49] LABS: Bacteria,Urine None Seen per hpf (None-Few); Hyaline Casts,Urine None Seen per lpf (None-Few); RBC,Urine 0-3 per hpf (0-3); Squamous Epithelial Cell,Urine Many per lpf (None-Few)
[2016-10-06 06:14] LABS: Platelet Estimate Slight Decrease (Normal); Toxic Vacuolation Present (Not Present)
[2016-10-06] MEDS: Furosemide 20 MG TABLET PO SCH (08:55)
[2016-10-06] MEDS: Pyridoxine (B-6) 50 MG TABLET PO SCH (08:56)
[2016-10-06] MEDS: Pantoprazole 40 MG VIAL IVP SCH (08:56)
[2016-10-06] MEDS: levETIRAcetam 250 MG TABLET PO SCH ×2 (08:56→20:32)
[2016-10-06] MEDS: Multivit/Ca/Min/Fe/FA 1 TAB TABLET PO SCH (08:56)
[2016-10-06] MEDS: (Omega-3/Dha/Epa/Fish Oil [Fish Oil 1,000 Mg Softgel] PO SCH (08:57)
[2016-10-06] MEDS: (Cyanocobalamin (Vitamin B-12) [Vitamin B-12] 100 MCG PO SCH (08:57)
--- NOTE | 2016-10-06 10:34 | Internal Med Progress Note ---
Date of Encounter: 10/06/16 Time of Encounter: 10:32 - Assessment and plan (1) Hematuria Current Visit: Yes Status: Acute (2) Hypokalemia Current Visit: Yes Status: Acute (3) Lower gastrointestinal hemorrhage Current Visit: Yes Status: Acute (4) Essential hypertension Current Visit: Yes Status: Chronic Assessment and plan: no further rectal bleed, outpatient followup with pcp for colonoscopy referral urology notes reviewed, urinalysis unremarkable, culture pending follow up with school social worker regarding placement current active meds reviewed and continued. - Subjective Interval history: f/u for hematuria, suspected GI bleed, pt reports some improvement today - Constitutional Vitals: Temp Pulse Resp BP Pulse Ox 98.1 F 87 16 123/69 95 10/06/16 06:00 10/06/16 06:00 10/06/16 06:00 10/06/16 06:00 10/06/16 06:00 General appearance: Present: A&O X 2 (underlying dementia, unreliable historian) - Head Head exam: Present: atraumatic, normocephalic - Eye Eye exam: Present: PERRL, conjuntiva pink, sclera anicteric Pupils: Present: PERRL - Neck Neck exam general surgery: Present: supple, trachea midline. Absent: lymphadenopathy - Respiratory Respiratory exam: Present: CTAB. Absent: accessory muscle use, rales, rhonchi, wheezes - Cardiovascular Cardiovascular exam: Present: irregular rhythm, +S1, +S2. Absent: diastolic murmur, gallop, rubs, systolic murmur - GI/Abdominal GI/Abdominal exam: Present: normal bowel sounds, soft, no peritoneal signs. Absent: distended, tenderness - Extremities Exam Extremities exam: Present: warm, radial pulses palpable and symetrical. Absent : calf tenderness, cyanotic, pedal edema - Neurological Exam Neurological exam: Present: CN II-XII intact, oriented X3, no focal deficits. Absent: pronater drift, facial droop, speech deficit - Skin Skin exam: Present: dry, intact Internal Medicine: Result - Labs CBC & Chem 7: 10/06/16 04:49 10/06/16 04:49 Labs: Short CBC 10/06/16 Range/Units 04:49 WBC 3.9 L (4.3-11.1) K/mcL Hgb 13.7 (12.9-16.9) g/dL Hct 40.2 (37.5-50.1) % Plt Count 110 L (140-400) K/mcL Neutrophils # 2.4 (1.6-8.9) K/mcL BMP 10/06/16 04:49 Sodium 138 Potassium 3.3 L Chloride 101 Carbon Dioxide 27 BUN 20 Creatinine 1.21 Glucose 102 H Calcium 8.2 L Urine 10/06/16 Range/Units 05:33 Urine Color Yellow (Yellow) Urine Clarity Clear (Clear) Urine pH 5.5 (5.0-8.0) pH Units Ur Specific [place] 1.012 (1.010-1.025) Urine Protein Negative (Neg-Trace) mg/dL Urine Glucose (UA) Normal (Normal) mg/dL - ABG Interpretation ABG results: PT/INR, D-dimer PT 13.1 Seconds (9.4-12.1) H 10/03/16 11:19 - Impressions Impressions Chest X-Ray 10/05/16 07:34 IMPRESSION: Portable chest shows no evidence of pleural effusion. Consider further evaluation with lateral view. There is patchy left basilar airspace disease. D/ / Adan Cobb MD / Adan Cobb MD Interpreting Provider: Adan Cobb MD Consult Discharge Plan - Plan Referrals: Kvng Conrad MD [Primary Care Provider] - 10/12/16 4:00 pm
[2016-10-07 05:44] LABS: BUN/Creatinine Ratio 27 (6-26); Blood Urea Nitrogen 26 mg/dL (8-26); Calcium 8.3 mg/dL (8.6-10.8); Carbon Dioxide 24 mEq/L (19-29); Chloride 105 mEq/L (98-109); Glucose 98 mg/dL (70-99); Osmolality,Calculated 295 (280-300); Potassium 3.8 mEq/L (3.5-4.5); Sodium 140 mEq/L (136-145); eGFR For African Americans > 60 (> 60); eGFR For Non-African Americans > 60 (> 60)
--- NOTE | 2016-10-07 09:21 | Discharge Summary ---
Date of Encounter: 10/07/16 Time of Encounter: 09:16 - Discharge Diagnosis (1) Hematuria Priority: Primary Status: Acute (2) Hypokalemia Priority: Secondary Status: Resolved (3) Lower gastrointestinal hemorrhage Priority: Secondary Status: Resolved (4) Essential hypertension Priority: Secondary Status: Chronic - Discharge Medications Prescriptions: Furosemide [Lasix] 20 mg PO DAILY #30 tablet Home Medications: Atorvastatin [Lipitor] 10 mg PO HS 01/28/16 [History] Donepezil HCl [Donepezil HCl Odt] 10 mg PO HS 01/28/16 [History] Irbesartan [Avapro] 150 mg PO DAILY 01/28/16 [History] Losartan [Cozaar] 25 mg PO BID 01/28/16 [History] Memantine [Namenda] 10 mg PO BID 01/28/16 [History] Metoprolol [Lopressor] 12.5 mg PO DAILY 01/28/16 [History] Multivitamin/Iron/Folic Acid [Centrum Complete Multivit Tab] 1 tab PO DAILY 12/10 [History] Omeprazole [PriLOSEC] 20 mg PO DAILY 01/28/16 [History] [place]-3/Dha/Epa/Fish Oil [Fish Oil 1,000 mg Softgel] 1,000 mg PO DAILY 05/04/16 [History] Cyanocobalamin (Vitamin B-12) [Vitamin B-12] 100 mcg PO DAILY 10/03/16 [History] LevETIRAcetam [Levetiracetam] 500 mg PO BID 10/03/16 [History] Levothyroxine [Synthroid] 100 mcg PO DAILY 10/03/16 [History] Pyridoxine HCl [Vitamin B-6] 100 mg PO DAILY 10/03/16 [History] Tamsulosin HCl [Flomax] 0.4 mg PO DAILY 10/03/16 [History] Furosemide [Lasix] 20 mg PO DAILY #30 tablet 10/07/16 [Rx] Allergies/Adverse Reactions: Allergies levofloxacin [From Levaquin] Allergy (Verified 10/03/16 14:23) See Comments PATIENT, AND SON ARE ALL UNSURE OF REACTION- Date of admission: 10/03/16 17:17 Primary care physician: Kvng Conrad MD Consults: 10/05/16 07:59 Consult to Urology [CONS] Routine Consulting Provider: [facility] Reason for Consult: Hematuria, blistering around meatus Call Completed: Yes 10/06/16 09:37 Consult to [employer] [CONS] Routine Reason for SW Consult: PT recommending ECF/SNF - Patient Status Disposition: Transfer SNF Condition: Good Overall status at discharge: patient is progressing back to baseline - Discharge Instructions Follow Up With: Kvng Conrad MD [Primary Care Provider] - 10/12/16 4:00 pm - Diet and Activity Activity: increase activity as tolerated Diet: advance to your usual diet Hospital course: Mr. Rahman is a 89 year old male who presented with suspected GI versus rectal bleed. His hgb however remained normal and he will be required to follow up with his pcp for endoscopy. He also was seen by Urology due to bladder wall thickening which has been attributed to BPH. Pt was suspected to have a UTI, however cultures were negative. He is discharged to intermediate facility in stable condition. - Time Spent with Patient Total time spent providing and/or coordinating discharge services: - Constitutional Vitals: Temp Pulse Resp BP Pulse Ox 98.4 F 87 16 125/64 90 L 10/07/16 03:47 10/07/16 03:47 10/07/16 03:47 10/07/16 03:47 10/07/16 03:47 General appearance: Present: A&O X 2 (underlying dementia, unreliable historian) , no acute distress - Head Head exam: Present: atraumatic, normocephalic - Eye Eye exam: Present: PERRL, conjuntiva pink, sclera anicteric Pupils: Present: PERRL - Neck Neck exam general surgery: Present: supple, trachea midline. Absent: lymphadenopathy - Respiratory Respiratory exam: Present: CTAB. Absent: accessory muscle use, rales, rhonchi, wheezes - Cardiovascular Cardiovascular exam: Present: RRR, +S1, +S2. Absent: diastolic murmur, gallop, rubs, systolic murmur - GI/Abdominal GI/Abdominal exam: Present: normal bowel sounds, soft, no peritoneal signs. Absent: distended, tenderness - Extremities Exam Extremities exam: Present: warm, radial pulses palpable and symetrical. Absent : calf tenderness, cyanotic, pedal edema - Neurological Exam Neurological exam: Present: CN II-XII intact, oriented X3, no focal deficits. Absent: pronater drift, facial droop, speech deficit - Skin Skin exam: Present: dry, intact
[2016-10-07] MEDS: Multivit/Ca/Min/Fe/FA 1 TAB TABLET PO SCH (09:22)
[2016-10-07] MEDS: Furosemide 20 MG TABLET PO SCH (09:22)
[2016-10-07] MEDS: levETIRAcetam 250 MG TABLET PO SCH (09:22)
[2016-10-07] MEDS: Pyridoxine (B-6) 50 MG TABLET PO SCH (09:24)
[2016-10-07] MEDS: (Omega-3/Dha/Epa/Fish Oil [Fish Oil 1,000 Mg Softgel] PO SCH (09:24)
[2016-10-07] MEDS: (Cyanocobalamin (Vitamin B-12) [Vitamin B-12] 100 MCG PO SCH (09:24)
[2016-10-07] MEDS: Pantoprazole 40 MG VIAL IVP SCH (09:24)
--- NOTE | 2016-10-07 10:11 | Physician Discharge Referral ---
ExtendedCare Referral Info Transfer To: SNF - Diagnosis (1) Hematuria Status: Acute (2) Hypokalemia Status: Resolved (3) Lower gastrointestinal hemorrhage Status: Resolved (4) Essential hypertension Status: Chronic - Transfer Medications Prescriptions: Furosemide [Lasix] 20 mg PO DAILY #30 tablet Home Medications: Atorvastatin [Lipitor] 10 mg PO HS 01/28/16 [History] Donepezil HCl [Donepezil HCl Odt] 10 mg PO HS 01/28/16 [History] Irbesartan [Avapro] 150 mg PO DAILY 01/28/16 [History] Losartan [Cozaar] 25 mg PO BID 01/28/16 [History] Memantine [Namenda] 10 mg PO BID 01/28/16 [History] Metoprolol [Lopressor] 12.5 mg PO DAILY 01/28/16 [History] Multivitamin/Iron/Folic Acid [Centrum Complete Multivit Tab] 1 tab PO DAILY 12/10 [History] Omeprazole [PriLOSEC] 20 mg PO DAILY 01/28/16 [History] [place]-3/Dha/Epa/Fish Oil [Fish Oil 1,000 mg Softgel] 1,000 mg PO DAILY 05/04/16 [History] Cyanocobalamin (Vitamin B-12) [Vitamin B-12] 100 mcg PO DAILY 10/03/16 [History] LevETIRAcetam [Levetiracetam] 500 mg PO BID 10/03/16 [History] Levothyroxine [Synthroid] 100 mcg PO DAILY 10/03/16 [History] Pyridoxine HCl [Vitamin B-6] 100 mg PO DAILY 10/03/16 [History] Tamsulosin HCl [Flomax] 0.4 mg PO DAILY 10/03/16 [History] Furosemide [Lasix] 20 mg PO DAILY #30 tablet 10/07/16 [Rx] Allergies/Adverse Reactions: Allergies levofloxacin [From Levaquin] Allergy (Verified 10/03/16 14:23) See Comments PATIENT, AND SON ARE ALL UNSURE OF REACTION- - Respiratory Orders Smoking Cessation: Smoking cessation has been advised. For more information, call the [employer] Quit Line at 5-749-ENTF-NOW. - Ancillary Orders May use pressure relief devices daily prn - Advance Directives Code Status: Full Code - Mobility Orders Ambulate - Rehabiliation Orders Rehab Potential: Good CERTIFICATION: I certify that the transfer of the above named patient to an Extended Care Facility is necessary for the continuing treatment of the diagnosis listed. The above information is true and accurate reflection of patient's current condition. Confidential - Redisclosure prohibited without a patient's written consent.
[2016-10-07 11:57] LABS: Hematocrit 45.7 % (37.5-50.1)
[2016-10-07 12:09] LABS: Hemoglobin 15.3 g/dL (12.9-16.9)
[2016-10-07] MEDS ORDERED: 0.9 % Sodium Chloride 500 ML IVC ONE (12:22)
[2016-10-07 15:47] VITALS: BP 114/59
[2016-10-07] MEDS ORDERED: FLU VACC QS2016-17 36MOS UP/PF 0.5 ML SYRINGE IM ONE (17:38)
== END 2016-10-07 19:25 | DRG 378 ==
LOC: EMEROO 10:30 → 2NENU 10:30 → SUATTDRO 17:17
PROVIDERS: ADMIT Internal Medicine; ATTEND Family Medicine

== ENCOUNTER 2017-06-08 10:58 | Inpatient (IN) ==
[2017-06-08] MEDS ORDERED: Nitroglycerin 0.4 MG TAB.SUBL SL ONE (11:23)
[2017-06-08] MEDS ORDERED: Aspirin 81 MG TAB.CHEW PO ONE (11:23)
--- NOTE | 2017-06-08 11:46 | Emergency Department Note ---
Disposition Clinical Impression: NSTEMI (non-ST elevated myocardial infarction), Hypoxia, Cough, Left bundle branch block, Essential hypertension CHF (congestive heart failure) Qualifiers: Congestive heart failure type: diastolic Congestive heart failure chronicity: acute on chronic Qualified Code(s): I50.33 - Acute on chronic diastolic ( congestive) heart failure Atrial fibrillation Qualifiers: Atrial fibrillation type: chronic Qualified Code(s): I48.2 - Chronic atrial fibrillation Disposition: Admitted As Inpatient General Adult HPI - General Chief complaint: ED Shortness of Breath/Dyspnea Stated complaint: coughing x2 weeks Time Seen by Provider: 06/08/17 11:04 Source: patient, family, other Mode of arrival: wheelchair Limitations: no limitations Nursing Notes Reviewed: Yes Vital Signs Reviewed: Yes - History of Present Illness HPI Narrative: Patient is an 89-year-old white male with a history of atrial fibrillation and known aortic aneurysm who presents to the emergency department today with a gradually worsening two-week history of cough which is now productive with yellowish sputum. Patient also complains of some associated mild shortness of breath that is worse with exertion. Patient states that he does have occasional chest pain that is substernal but only associated with his coughing. If he is not actively coughing he is chest pain-free. Patient denies any fevers or chills, has had some mild nasal congestion, no posttussive emesis, no nausea vomiting, no abdominal pain or flank pain, no lightheadedness or syncope. states she was concerned because the cough sounded so deep in his chest. Patient arrives with no respiratory distress but was hypoxic on arrival at 90% O2 sat and is not on oxygen at home. Patient denies any other associated symptoms. Pain Scale: 5 - Related Data Home Medications Medication Instructions Recorded Confirmed Atorvastatin [Lipitor] 10 mg PO HS 01/28/16 06/08/17 Donepezil HCl [Donepezil HCl Odt] 10 mg PO HS 01/28/16 06/08/17 Losartan [Cozaar] 25 mg PO DAILY 01/28/16 06/08/17 Memantine [Namenda] 10 mg PO BID 01/28/16 06/08/17 Metoprolol [Lopressor] 12.5 mg PO DAILY 01/28/16 06/08/17 Multivitamin/Iron/Folic Acid 1 tab PO DAILY 01/28/16 06/08/17 [Centrum Complete Multivit Tab] Omeprazole [PriLOSEC] 20 mg PO DAILY 01/28/16 06/08/17 [place]-3/Dha/Epa/Fish Oil [Fish Oil 1,000 mg PO DAILY 05/04/16 06/08/17 1,000 mg Softgel] Pyridoxine HCl [Vitamin B-6] 100 mg PO DAILY 10/03/16 06/08/17 LevETIRAcetam [Keppra] 500 mg PO BID 06/08/17 06/08/17 Allergies Allergy/AdvReac Type Severity Reaction Status Date / Time levofloxacin [From Levaquin] Allergy See Verified 06/08/17 10:59 Comments All systems ED: reviewed and negative except as stated. Constitutional: Denies: fever, chills Eyes: Denies: vision change ENT ED: Reports: congestion. Denies: ear pain, throat pain, dental pain, dysphagia Cardiovascular: Reports: chest pain. Denies: palpitations, dyspnea on exertion , orthopnea, edema, syncope, paroxysmal nocturnal dyspnea Respiratory: Reports: cough, dyspnea, sputum production. Denies: wheezes, hemoptysis, stridor Gastrointestinal: Denies: abdominal pain, nausea, vomiting, diarrhea Genitourinary: Denies: urgency, dysuria, frequency Musculoskeletal: Denies: back pain, arthralgia, myalgia Integumentary: Denies: rash Neurological: Denies: headache Past Medical History - Past Medical History Medical history: Reports: aortic aneurysm, atrial fibrillation, CVA, dementia, hypertension, other Surgical history: Reports: other (Aortic aneurysm repair) Psychiatric history: Reports: no psych history - Social History Smoking Status: Former smoker Smokeless Tobacco Status: No Alcohol use: Reports: occasionally Drug use: Reports: none Physical Exam - General Limitations: no limitations General appearance: alert, in no apparent distress, other (Elderly male appears tired but in no acute distress.) - Head Head exam: atraumatic, normocephalic, normal inspection - Eye Eye exam: Present: normal appearance, PERRL, EOMI. Absent: scleral icterus - ENT ENT exam: normal exam, normal oropharynx, mucous membranes dry - Neck Neck exam: Present: normal inspection, trachea midline. Absent: lymphadenopathy , thyromegaly - Chest Chest inspection: Present: normal inspection, symmetric chest wall rise. Absent : tenderness - Respiratory Respiratory exam: Present: normal lung sounds bilaterally. Absent: respiratory distress, wheezes, stridor, accessory muscle use, prolonged expiratory phase - Cardiovascular Cardiovascular exam: Present: normal rhythm, irregular rhythm, normal heart sounds - Abdominal Exam Abdominal exam: Present: soft, Non-Tender, normal bowel sounds - Extremities Exam Extremities exam: Present: normal inspection. Absent: tenderness, pedal edema, calf tenderness - Back Exam Back exam: Present: normal inspection. Absent: tenderness, CVA tenderness (R), CVA tenderness (L) - Neurological Exam Neurological exam: Present: alert, oriented X3, CN II-XII intact, reflexes normal. Absent: motor sensory deficit - Psychiatric Psychiatric exam: Present: normal affect, normal mood - Skin Skin exam: Present: warm, dry, intact, pallor Course Course Narrative: Patient's 89-year-old white male who has a history of atrial fibrillation and known aortic aneurysm who presents to emergency department today with complaints of a 2 week history of gradually worsening cough which is now productive with yellowish sputum. Patient also complains of some mild shortness of breath. Patient denies any ill contacts, reports this started out as a cold and has progressed and worsened. Patient arrives hypoxic on room air and is not normally on supplement oxygen at home and no history of prior lung disease is a remote smoker. Patient mentioned he was having chest pain but it is only with coughing he is not coughing he denies any form of chest pain pressure or heaviness. Patient denies any abdominal pain or back pain really no other complaints besides some increased fatigue generally. 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 - Reevaluation(s) Reevaluation #1: Patient remains resting comfortably with stable vital signs. Patient chronic A. fib but rate controlled throughout his ED course. Patient still denying any form of chest pain pressure or heaviness at this time. It appears that his shortness of breath is due to increasing pulmonary edema secondary to CHF. Patient's troponin is also positive. Concerning findings for non-STEMI with CHF. Patient was given nitroglycerin and Lasix. Discussed the results with patient and who agree with admission to the hospital for further evaluation and management. Discussed the results with Dr. Crisostomo, who accepted the patient for admission. He requests that we hold any Plavix or heparin at this time. Patient remains hemodynamically stable at this time and in no respiratory distress. Patient will be admitted for further evaluation and management. Vital Signs Temperature 97.5 F L 06/08/17 10:59 Pulse Rate 90 06/08/17 10:59 Respiratory Rate 20 06/08/17 10:59 Blood Pressure 183/89 06/08/17 10:59 O2 Sat by Pulse Oximetry 90 06/08/17 10:59 Temperature 97.5 F L 06/08/17 15:22 Pulse Rate 94 06/08/17 15:22 Respiratory Rate 16 06/08/17 15:52 Blood Pressure 164/112 06/08/17 15:22 O2 Sat by Pulse Oximetry 97 06/08/17 15:52 Oxygen Delivery Oxygen Delivery Nasal Cannula Medical Decision Making - Medical Records Medical records reviewed: Yes I reviewed the patient's medical records. - Lab Data Lab results reviewed: Yes I reviewed the patient's lab results. Result diagrams: 06/08/17 11:42 06/08/17 11:42 Lab Results 06/08/17 06/08/17 06/08/17 Range/Units 11:42 11:42 11:42 WBC 6.5 (4.3-11.1) K/mcL RBC 4.43 (4.19-5.50) M/mcL Hgb 14.9 (12.9-16.9) g/dL Hct 46.6 (37.5-50.1) % MCV 105.2 H (83.0-100.0) fL MCH 33.6 H (28.0-33.3) pg MCHC 32.0 (31.6-35.5) g/dL RDW 13.6 (11.5-14.5) % Plt Count 178 (140-400) K/mcL MPV 9.2 L (9.4-12.4) fL Immature Gran % 0.2 (0-4) % Seg Neutrophils % 69.2 % Lymphocytes % 21.2 % Monocytes % 6.2 % Eosinophils % 2.6 % Basophils % 0.6 % Neutrophils # 4.5 (1.6-8.9) K/mcL Lymphocytes # 1.4 (0.6-4.6) K/mcL Monocytes # 0.4 (0.0-1.3) K/mcL Eosinophils # 0.2 (0.0-0.6) K/mcL Basophils # 0.0 (0.0-0.2) K/mcL Immature Plt Fraction 1.9 (1.1-6.1) % PT 13.2 H (9.4-12.1) Seconds INR 1.2 APTT 31.8 (26.0-36.0) Seconds Sodium (136-145) mEq/L Potassium (3.5-4.5) mEq/L Chloride (98-109) mEq/L Carbon Dioxide (19-29) mEq/L BUN (8-26) mg/dL Creatinine (0.72-1.25) mg/dL Est GFR ( Amer) (> 60) Est GFR (Non-Af Amer) (> 60) BUN/Creatinine Ratio (6-26) Glucose (70-99) mg/dL Calculated Osmolality (280-300) Calcium (8.6-10.8) mg/dL Troponin I (0-0.03) ng/mL B-Natriuretic Peptide 1037 H (0-100) pg/mL 06/08/17 06/08/17 Range/Units 11:42 11:42 WBC (4.3-11.1) K/mcL RBC (4.19-5.50) M/mcL Hgb (12.9-16.9) g/dL Hct (37.5-50.1) % MCV (83.0-100.0) fL MCH (28.0-33.3) pg MCHC (31.6-35.5) g/dL RDW (11.5-14.5) % Plt Count (140-400) K/mcL MPV (9.4-12.4) fL Immature Gran % (0-4) % Seg Neutrophils % % Lymphocytes % % Monocytes % % Eosinophils % % Basophils % % Neutrophils # (1.6-8.9) K/mcL Lymphocytes # (0.6-4.6) K/mcL Monocytes # (0.0-1.3) K/mcL Eosinophils # (0.0-0.6) K/mcL Basophils # (0.0-0.2) K/mcL Immature Plt Fraction (1.1-6.1) % PT (9.4-12.1) Seconds INR APTT (26.0-36.0) Seconds Sodium 147 H (136-145) mEq/L Potassium 4.3 (3.5-4.5) mEq/L Chloride 109 (98-109) mEq/L Carbon Dioxide 30 H (19-29) mEq/L BUN 21 (8-26) mg/dL Creatinine 0.90 (0.72-1.25) mg/dL Est GFR ( Amer) > 60 (> 60) Est GFR (Non-Af Amer) > 60 (> 60) BUN/Creatinine Ratio 23 (6-26) Glucose 129 H (70-99) mg/dL Calculated Osmolality 309 H (280-300) Calcium 9.5 (8.6-10.8) mg/dL Troponin I 0.04 H* (0-0.03) ng/mL B-Natriuretic Peptide (0-100) pg/mL - Radiology Data Radiology results reviewed: Yes I reviewed the patient's radiology results. Chest X-Ray 06/08/17 11:23 IMPRESSION: Cardiomegaly with bilateral pleural effusions and mild interstitial pulmonary edema suggesting CHF. D/ / 06/08/2017 12:32:58 Link Peoples [facility] Interpreting Provider: Link Peoples MD - EKG Data EKG #1 Rhythm: A.Fib [place]/QRS: LBBB When compared to previous EKG there are: no significant changes Interpretation: no acute changes S.B.ARainerRRainer - Carmen.ARainerRRainer Assessment: Vital Signs, Course and respsone to treatment, Exam Concerns, Patient/Family Expectation, Pertinant Lab Results, Outstanding Labs S.B.A.RRainer Report Given to: Dr. Kranthi Link Repor Time: 13:01
[2017-06-08 11:50] LABS: Basophils % 0.6 %; Eosinophils # 0.2 K/mcL (0.0-0.6); Eosinophils % 2.6 %; Hematocrit 46.6 % (37.5-50.1); Hemoglobin 14.9 g/dL (12.9-16.9); Immature Granulocytes % 0.2 % (0-4); Immature Platelets 1.9 % (1.1-6.1); Lymphocytes # 1.4 K/mcL (0.6-4.6); Lymphocytes % 21.2 %; Mean Corpuscular Hemoglobin 33.6 pg (28.0-33.3); Mean Corpuscular Volume 105.2 fL (83.0-100.0); Mean Platelet Volume 9.2 fL (9.4-12.4); Monocytes # 0.4 K/mcL (0.0-1.3); Monocytes % 6.2 %; Neutrophils # 4.5 K/mcL (1.6-8.9); Platelet Count 178 K/mcL (140-400); Red Blood Count 4.43 M/mcL (4.19-5.50); Red Cell Distribution Width 13.6 % (11.5-14.5); Segmented Neutrophils % 69.2 %
[2017-06-08 11:55] LABS: INR 1.2; Prothrombin Time 13.2 Seconds (9.4-12.1)
[2017-06-08 11:57] LABS: Activated Partial Thrombo Time 31.8 Seconds (26.0-36.0)
[2017-06-08 12:02] LABS: BUN/Creatinine Ratio 23 (6-26); Blood Urea Nitrogen 21 mg/dL (8-26); Calcium 9.5 mg/dL (8.6-10.8); Carbon Dioxide 30 mEq/L (19-29); Chloride 109 mEq/L (98-109); Glucose 129 mg/dL (70-99); Osmolality,Calculated 309 (280-300); Potassium 4.3 mEq/L (3.5-4.5); Sodium 147 mEq/L (136-145); eGFR For African Americans > 60 (> 60); eGFR For Non-African Americans > 60 (> 60)
[2017-06-08] MEDS ORDERED: Furosemide 40 MG/4 ML VIAL IVP ONE (12:18)
[2017-06-08] MEDS ORDERED: Nitroglycerin 1 INCH/GM PACKET TP ONE (12:18)
--- NOTE | 2017-06-08 13:45 | Internal Med History&Physical ---
Date of Encounter: 06/08/17 Time of Encounter: 13:00 Assessment and Plan (1) CHF (congestive heart failure) Current visit: Yes Status: Acute Denies hx of CHF. I suspect this may be related to HTN and that he may have underlying diastolic CHF. Check echo. Lasix 40 mg IV BID Lopressor increased to 25 mg po bid Continue ARB Add Hydralazine 25 mg po tid Baby asa (npt he GIB and ICB per records). Uptitrate meds as able Check echo Mild trop elevation likely due to CHF. PT's chest pain is pleuritic in nature and has been present for 2 weeks and is assoc with cough. I do not suspect NSTEMI. Qualifiers: Congestive heart failure type: diastolic Congestive heart failure chronicity: acute on chronic Qualified Code(s): I50.33 - Acute on chronic diastolic (congestive) heart failure (2) HTN (hypertension) Current visit: Yes Status: Acute Hydralazine added, BB increased, monitor and uptitrate meds as able. ARB continued. Qualifiers: Hypertension type: essential hypertension Qualified Code(s): I10 - Essential (primary) hypertension (3) Dementia Current visit: No Status: Chronic Qualifiers: Dementia type: Alzheimer's disease Alzheimer's disease onset: late-onset Dementia behavioral disturbance: without behavioral disturbance Qualified Code (s): G30.1 - Alzheimer's disease with late onset; F02.80 - Dementia in other diseases classified elsewhere without behavioral disturbance (4) Chest pain Current visit: Yes Status: Acute suspect due to cough, see above Qualifiers: Chest pain type: intercostal pain Qualified Code(s): R07.82 - Intercostal pain (5) Acute hypoxemic respiratory failure Current visit: Yes Status: Acute likely due to CHF. May have underlying COPD. Doubt PNA Add duonebs, mucinex, O2 supplem (6) Hypokalemia Current visit: Yes Status: Acute mild, replace cautiously, monitor (7) Afib Current visit: Yes Status: Acute rate controlled, not on anticoag, monitor Qualifiers: Atrial fibrillation type: chronic Qualified Code(s): I48.2 - Chronic atrial fibrillation Internal Medicine - H&P: HPI Admitted From: Home Plans for Post Hospital Care: Home History of present illness: Mr. Rahman is a 89 year old male 89 yo male with pmh HTN, Afib not on anticoag due to ICB and GIB, Dementia. Pt admitted from ER after presenting with hx of severe cough x last 2 weeks prod of yellow sputum. He has dev pleuritic ant chest wall pain as a result of this cough. No fevers or chills. Mild SOB. PT noted to be hypertensive in the 190' s systolic in the ER. Pt reports h ahs been compliant with his meds at home but is unsure how his BP has been lately. No headache. No N/V/D. No abd pain. Positive orthopnea. no weight gain or loss, pt has had diminished appetite since coughing began. No travel or ill contacts. no recent illness. Denies hx CHF. In the ER his WBC was nml, Cr 1.21, Vital stable but hypoxemic requiring 2 L O2. CXR showed CHF. BNP 1037. Pt was given IV Lasix with good diuresis and improvement in his dyspnea. EKG showed old LBB and Afib. Trop 0.04. Past Med Surg Social Fam HX - Past Medical History Medical history: aortic aneurysm, atrial fibrillation, CVA, dementia, hypertension, other Psychiatric history: no psych history - Past Surgical History Surgical History: no surgical history, other (Aortic aneurysm repair) - Social History Smoking Status: Former smoker Packs per day: 1 ppd x many years, wuit 35 yrs ago Smokeless Tobacco Status: No Alcohol use: occasionally Drug use: none Occupational status: retired Current living situation: Home Activity Level: Independent ambulation Recent Out of Country Travel Within the Last 8 Weeks: No Exposure or Possible Exposure to Illness During Travel: No - Family History Father Hx Family Cardiac Disorders: Yes ([place]) - Additional Family History Additional family history: fam hx reviewed and noncontrib Internal Medicine - H&P: Meds Atorvastatin [Lipitor] 10 mg PO HS 01/28/16 [History] Donepezil HCl [Donepezil HCl Odt] 10 mg PO HS 01/28/16 [History] Irbesartan [Avapro] 150 mg PO DAILY 01/28/16 [History] Losartan [Cozaar] 25 mg PO BID 01/28/16 [History] Memantine [Namenda] 10 mg PO BID 01/28/16 [History] Metoprolol [Lopressor] 12.5 mg PO DAILY 01/28/16 [History] Multivitamin/Iron/Folic Acid [Centrum Complete Multivit Tab] 1 tab PO DAILY 12/10 [History] Omeprazole [PriLOSEC] 20 mg PO DAILY 01/28/16 [History] [place]-3/Dha/Epa/Fish Oil [Fish Oil 1,000 mg Softgel] 1,000 mg PO DAILY 05/04/16 [History] Pyridoxine HCl [Vitamin B-6] 100 mg PO DAILY 10/03/16 [History] 3 Allergy/AdvReac Type Severity Reaction Status Date / Time levofloxacin [From Levaquin] Allergy See Verified 06/08/17 10:59 Comments All Systems PM: A 10-system review of systems was performed and is negative for pertinent findings except as documented above in the HPI. - Constitutional Vitals: Temp Pulse Resp BP Pulse Ox 97.5 F L 85 22 157/105 99 06/08/17 10:59 06/08/17 12:12 06/08/17 13:30 06/08/17 13:30 06/08/17 12:12 General appearance: Present: mild distress (conversational dyspnea), underweight - Respiratory Respiratory exam: Present: CTAB, rales (crackles 1/2 up bilaterally). Absent: accessory muscle use, rhonchi, wheezes - Cardiovascular Cardiovascular exam: Present: irregular rhythm. Absent: diastolic murmur, gallop, rubs, systolic murmur - Skin Skin exam: Present: dry, intact Internal Med - H&P Results - Labs CBC & Chem 7: 06/08/17 11:42 06/08/17 11:42 - EKG Data -: EKG Interpreted by Myself (Afib) - EKG Data Prior EKG available for review: yes When compared to previous EKG: there is no significant change - Diagnostic Studies CT scan - abdomen Status: image reviewed by me (CHF)
[2017-06-08] MEDS: *HR* Heparin 5,000 UNIT/ML VIAL SQ SCH ×2 (14:47→21:13)
[2017-06-08] MEDS: hydrALAZINE 25 MG TABLET PO SCH ×2 (14:47→15:37)
[2017-06-08] MEDS: Potassium Chloride Elixir 20 MEQ/15 ML UDC PO SCH ×2 (14:48→21:12)
[2017-06-08] MEDS: Ipratropium/Albuterol Neb 3 ML IH SCH ×2 (15:49→21:34)
[2017-06-08] MEDS: Furosemide 40 MG/4 ML VIAL IVP SCH (19:14)
[2017-06-08] MEDS ORDERED: Furosemide 40 MG in 0.9 % Sodium Chloride 50 ML IVPB SCH (21:00)
[2017-06-09] MEDS: hydrALAZINE 25 MG TABLET PO SCH ×4 (00:49→22:48)
[2017-06-09] MEDS: Ipratropium/Albuterol Neb 3 ML IH SCH ×4 (03:47→22:44)
[2017-06-09 04:44] LABS: Basophils % 0.7 %; Eosinophils # 0.2 K/mcL (0.0-0.6); Eosinophils % 3.7 %; Hematocrit 44.5 % (37.5-50.1); Hemoglobin 14.3 g/dL (12.9-16.9); Immature Granulocytes % 0.2 % (0-4); Lymphocytes # 2.2 K/mcL (0.6-4.6); Lymphocytes % 37.6 %; Mean Corpuscular HGB Conc 32.1 g/dL (31.6-35.5); Mean Corpuscular Hemoglobin 33.3 pg (28.0-33.3); Mean Corpuscular Volume 103.5 fL (83.0-100.0); Mean Platelet Volume 9.4 fL (9.4-12.4); Monocytes # 0.4 K/mcL (0.0-1.3); Monocytes % 7.2 %; Platelet Count 165 K/mcL (140-400); Red Cell Distribution Width 13.5 % (11.5-14.5); Segmented Neutrophils % 50.6 %
[2017-06-09 04:54] LABS: BUN/Creatinine Ratio 21 (6-26); Blood Urea Nitrogen 19 mg/dL (8-26); Calcium 9.3 mg/dL (8.6-10.8); Carbon Dioxide 31 mEq/L (19-29); Chloride 106 mEq/L (98-109); Glucose 92 mg/dL (70-99); Osmolality,Calculated 308 (280-300); Potassium 3.8 mEq/L (3.5-4.5); Sodium 148 mEq/L (136-145); eGFR For African Americans > 60 (> 60); eGFR For Non-African Americans > 60 (> 60)
[2017-06-09] MEDS: *HR* Heparin 5,000 UNIT/ML VIAL SQ SCH ×3 (05:37→22:48)
[2017-06-09] MEDS: Furosemide 40 MG/4 ML VIAL IVP SCH ×2 (08:55→17:41)
[2017-06-09] MEDS: Aspirin 81 MG TAB.CHEW PO SCH (08:56)
[2017-06-09] MEDS: Multivit/Ca/Min/Fe/FA 1 TAB TABLET PO SCH (08:56)
[2017-06-09] MEDS: Potassium Chloride Elixir 20 MEQ/15 ML UDC PO SCH ×2 (08:57→22:48)
--- NOTE | 2017-06-09 09:03 | Internal Med Progress Note ---
<EliaanilTyler - Last Filed: 06/09/17 10:47> Date of Encounter: 06/09/17 Time of Encounter: 09:03 - Assessment and plan (1) CHF (congestive heart failure) Current Visit: Yes Status: Acute Assessment and plan: Improving. Acute on Chronic Diastolic CHF likely caused by HTN Patient denies hx of CHF but ECHO on 10/04/16 indicates diastolic dysfunction. ECHO performed this morning showing perserved EF compared to prior 50%, Shows worsening of diastolic dysfunction with pulmonary HTN, dilated atriums, atypical septal motion consistent with RBB (presnt on prior), mitral and tricuspid regurge, and Aortic regurge. Continue Lasix mg IV BID Control HTN Qualifiers: Congestive heart failure type: diastolic Congestive heart failure chronicity: acute on chronic Qualified Code(s): I50.33 - Acute on chronic diastolic (congestive) heart failure (2) HTN (hypertension) Current Visit: Yes Status: Acute Assessment and plan: acute on chronic at home on 25mg cozaar, 12.5mg lopresor. BP 183/89 on admission Patient started on 50mg Cozaar, 25mg Lopressor BID, and 25mg hydralazine Q8H. BP int he 150s, 160s. Cozaar just started this morning. No vitals since. Continue to monitor. Titrate up as needed. Qualifiers: Hypertension type: essential hypertension Qualified Code(s): I10 - Essential (primary) hypertension (3) Acute hypoxemic respiratory failure Current Visit: Yes Status: Acute Assessment and plan: Likely secondary to CHF. Continue oxygen as needed continue diuretics (4) Dementia Current Visit: No Status: Chronic Assessment and plan: Patient is a poor historian. Denies Hx of CHF or Seizures however patient does have these conditions, based on old records. continue Memantine and Donepezil Qualifiers: Dementia type: Alzheimer's disease Alzheimer's disease onset: late-onset Dementia behavioral disturbance: without behavioral disturbance Qualified Code (s): G30.1 - Alzheimer's disease with late onset; F02.80 - Dementia in other diseases classified elsewhere without behavioral disturbance (5) Chest pain Current Visit: Yes Status: Acute Assessment and plan: None currently likely 2/2 to cough. No worsening EF on ECHO. continue to monitor. Qualifiers: Chest pain type: intercostal pain Qualified Code(s): R07.82 - Intercostal pain (6) Afib Current Visit: Yes Status: Acute Assessment and plan: Chronic, Stable. Not on anticoagulation 2/2 ICB and GIB Rate controlled. Continue to monitor. Qualifiers: Atrial fibrillation type: chronic Qualified Code(s): I48.2 - Chronic atrial fibrillation - Subjective Interval history: Patient reports feeling fine. He denies YOUNG, Chest Pain, SOB. abd pain. He endorses Cough with phlegm. Patient had Echo this morning. We are awaiting report. Patient has been hypertensive. Received first dose of Cozaar 50mg this morning. No vitals since then to evaluate efficacy. - Constitutional Vitals: Temp Pulse Resp BP Pulse Ox 97.4 F L 67 17 158/94 89 06/09/17 07:31 06/09/17 07:31 06/09/17 07:31 06/09/17 07:31 06/09/17 07:31 General appearance: Present: mild distress (conversational dyspnea), underweight - Head Head exam: Present: atraumatic, normocephalic - Eye Eye exam: Present: PERRL, conjuntiva pink Pupils: Present: PERRL - Neck Neck exam general surgery: Present: supple, trachea midline - Respiratory Respiratory exam: Present: decreased breath sounds, rales. Absent: accessory muscle use, rhonchi, wheezes - Cardiovascular Cardiovascular exam: Present: irregular rhythm, +S1, +S2. Absent: diastolic murmur, gallop, rubs, systolic murmur - GI/Abdominal GI/Abdominal exam: Present: normal bowel sounds, soft, no peritoneal signs. Absent: distended, tenderness - Extremities Exam Extremities exam: Present: warm. Absent: calf tenderness, cyanotic, pedal edema - Neurological Exam Neurological exam: Present: alert. Absent: facial droop, speech deficit Additional comments: Patient oriented to self, place, and knows year. He guesses april for month, but then looks at the board and says it's may. He cannot name the president, but can describe him. - Skin Skin exam: Present: dry, intact Internal Medicine: Result - Labs CBC & Chem 7: 06/09/17 04:21 06/09/17 04:21 Labs: Short CBC 06/09/17 Range/Units 04:21 WBC 6.0 (4.3-11.1) K/mcL Hgb 14.3 (12.9-16.9) g/dL Hct 44.5 (37.5-50.1) % Plt Count 165 (140-400) K/mcL Neutrophils # 3.0 (1.6-8.9) K/mcL [facility] 06/09/17 04:21 Sodium 148 H Potassium 3.8 Chloride 106 Carbon Dioxide 31 H BUN 19 Creatinine 0.92 Glucose 92 Calcium 9.3 - ABG Interpretation ABG results: PT/INR, D-dimer PT 13.2 Seconds (9.4-12.1) H 06/08/17 11:42 Consult Discharge Plan - Plan Referrals: Oleg Rahman DO [Partnered Physician] - (web request 06/08/2017) <Christopher Loving - Last Filed: 06/09/17 17:50> Date of Encounter: 06/09/17 - Constitutional Vitals: Temp Pulse Resp BP Pulse Ox 97.5 F L 74 17 155/82 91 06/09/17 16:23 06/09/17 16:23 06/09/17 16:23 06/09/17 16:23 06/09/17 16:23 Internal Medicine: Result - Labs CBC & Chem 7: 06/09/17 04:21 06/09/17 04:21 Labs: Short CBC 06/09/17 Range/Units 04:21 WBC 6.0 (4.3-11.1) K/mcL Hgb 14.3 (12.9-16.9) g/dL Hct 44.5 (37.5-50.1) % Plt Count 165 (140-400) K/mcL Neutrophils # 3.0 (1.6-8.9) K/mcL [facility] 06/09/17 04:21 Sodium 148 H Potassium 3.8 Chloride 106 Carbon Dioxide 31 H BUN 19 Creatinine 0.92 Glucose 92 Calcium 9.3 - ABG Interpretation ABG results: PT/INR, D-dimer PT 13.2 Seconds (9.4-12.1) H 06/08/17 11:42 - Attending Attestation I examined this patient and my medical decision-making was reviewed with the Resident Physician. I agree with the documented findings, disposition and treatment plan as described except to the extent set forth below. 89/male. Admitted with worsening generalized weakness. Wobbly gait. Multiple near falls. Plan: Will get B12/folate/metallic melanotic acid. PT/OT evaluation
[2017-06-09] MEDS: levETIRAcetam 250 MG TABLET PO SCH ×2 (10:51→22:48)
--- NOTE | 2017-06-09 15:55 | Electrocardiograph Report ---
[place] [id number] Test Date: 2017-06-08 Pat Name: Jarod Rahman Department: 104 Room: 2A23 Gender: M Directory Clerk: : [id number] Requested By: Yecenia Randall Order Number: [id number] Reading MD: Robby Lomeli MD Measurements Intervals [place] Rate: 87 P: MS: 0 QRS: -9 QRSD: 132 T: 98 QT: 382 QTc: 426 Interpretive Statements ATRIAL FIBRILLATION WITH ABERRANT CONDUCTION OR VENTRICULAR PREMATURE COMPLEXES LEFT BUNDLE BRANCH BLOCK Electronically Signed On 06-09-2017 15:53:41 EDT by Robby Lomeli MD
[2017-06-10] MEDS: Ipratropium/Albuterol Neb 3 ML IH SCH ×4 (04:15→22:21)
[2017-06-10 04:45] LABS: Basophils # 0.1 K/mcL (0.0-0.2); Basophils % 0.8 %; Eosinophils # 0.2 K/mcL (0.0-0.6); Eosinophils % 3.6 %; Immature Granulocytes % 0.8 % (0-4); Immature Platelets 2.6 % (1.1-6.1); Lymphocytes # 1.9 K/mcL (0.6-4.6); Lymphocytes % 28.9 %; Mean Corpuscular HGB Conc 32.6 g/dL (31.6-35.5); Mean Corpuscular Hemoglobin 33.3 pg (28.0-33.3); Mean Corpuscular Volume 102.1 fL (83.0-100.0); Mean Platelet Volume 9.9 fL (9.4-12.4); Monocytes # 0.6 K/mcL (0.0-1.3); Monocytes % 8.9 %; Neutrophils # 3.7 K/mcL (1.6-8.9); Platelet Count 179 K/mcL (140-400); Red Blood Count 4.21 M/mcL (4.19-5.50); Red Cell Distribution Width 13.5 % (11.5-14.5)
[2017-06-10 06:16] LABS: Alanine Aminotransferase 14 Units/L (0-55); Albumin 2.8 g/dL (3.5-5.0); Albumin/Globulin Ratio 0.8 (1.1-2.2); Alkaline Phosphatase 136 Units/L (38-126); Aspartate Amino Transferase 26 Units/L (5-34); BUN/Creatinine Ratio 20 (6-26); Bilirubin,Total 1.3 mg/dL (0.2-1.2); Blood Urea Nitrogen 18 mg/dL (8-26); Carbon Dioxide 30 mEq/L (19-29); Chloride 105 mEq/L (98-109); Globulin 3.6 g/dL (2.4-3.5); Glucose 88 mg/dL (70-99); Osmolality,Calculated 305 (280-300); Potassium 3.2 mEq/L (3.5-4.5); Sodium 147 mEq/L (136-145); Total Protein 6.4 g/dL (6.0-8.3); eGFR For African Americans > 60 (> 60); eGFR For Non-African Americans > 60 (> 60)
[2017-06-10] MEDS: *HR* Heparin 5,000 UNIT/ML VIAL SQ SCH ×3 (06:52→22:33)
--- NOTE | 2017-06-10 08:26 | Internal Med Progress Note ---
<Tyler Wilkerson - Last Filed: 06/10/17 14:15> Date of Encounter: 06/10/17 Time of Encounter: 08:45 - Assessment and plan (1) CHF (congestive heart failure) Current Visit: Yes Status: Acute Assessment and plan: Improving. Acute on Chronic Diastolic CHF -likely caused by HTN -Patient denies hx of CHF but ECHO on 10/04/16 indicates diastolic dysfunction. -ECHO performed this morning showing perserved EF compared to prior 50%, Shows worsening of diastolic dysfunction with pulmonary HTN, dilated atriums, atypical septal motion consistent with RBB (presnt on prior), mitral and tricuspid regurge, and Aortic regurge. -Continue Lasix mg IV BID -Control HTN Qualifiers: Congestive heart failure type: diastolic Congestive heart failure chronicity: acute on chronic Qualified Code(s): I50.33 - Acute on chronic diastolic (congestive) heart failure (2) HTN (hypertension) Current Visit: Yes Status: Acute Assessment and plan: acute on chronic -at home on 25mg cozaar, 12.5mg lopresor. -BP 183/89 on admission -Patient started on 50mg Cozaar, 25mg Lopressor BID, and 25mg hydralazine Q8H. -BP improved. -Continue to monitor. -Titrate up as needed. Qualifiers: Hypertension type: essential hypertension Qualified Code(s): I10 - Essential (primary) hypertension (3) Acute hypoxemic respiratory failure Current Visit: Yes Status: Acute Assessment and plan: Likely secondary to CHF. -Continue oxygen as needed -continue diuretics (4) Dementia Current Visit: No Status: Chronic Assessment and plan: Patient is a poor historian. continue Memantine and Donepezil Qualifiers: Dementia type: Alzheimer's disease Alzheimer's disease onset: late-onset Dementia behavioral disturbance: without behavioral disturbance Qualified Code (s): G30.1 - Alzheimer's disease with late onset; F02.80 - Dementia in other diseases classified elsewhere without behavioral disturbance (5) Chest pain Current Visit: Yes Status: Acute Assessment and plan: None currently likely 2/2 to cough. -No worsening EF on ECHO. -continue to monitor. Qualifiers: Chest pain type: intercostal pain Qualified Code(s): R07.82 - Intercostal pain (6) Afib Current Visit: Yes Status: Acute Assessment and plan: Chronic, Stable. -Not on anticoagulation 2/2 ICB and GIB -Rate controlled. -Continue to monitor. Qualifiers: Atrial fibrillation type: chronic Qualified Code(s): I48.2 - Chronic atrial fibrillation (7) Hematuria Current Visit: No Status: Acute Assessment and plan: large amount of BRB from Meatus. Hx of Bladder wall thickening on CT scan. Never had cystoscopy or f/u out patient. Urology consulted. Will appreciate recs. Qualifiers: Hematuria type: gross Qualified Code(s): R31.0 - Gross hematuria - Subjective Interval history: Patient reports feeling fine. He denies YOUNG, Chest Pain, SOB. abd pain. He is not currently on oxygen at this time and reports feeling fine. He has no loss of proprioception on exam. - Constitutional Vitals: Temp Pulse Resp BP Pulse Ox 97.6 F 70 18 160/87 94 06/10/17 07:21 06/10/17 07:21 06/10/17 07:21 06/10/17 07:21 06/10/17 07:21 General appearance: Present: mild distress (conversational dyspnea), underweight - Head Head exam: Present: atraumatic, normocephalic - Eye Eye exam: Present: PERRL, conjuntiva pink, sclera anicteric Pupils: Present: PERRL - Neck Neck exam general surgery: Present: supple, trachea midline. Absent: lymphadenopathy - Respiratory Respiratory exam: Present: CTAB. Absent: accessory muscle use, rales, rhonchi, wheezes Additional comments: end expiratory upper airway noise - Cardiovascular Cardiovascular exam: Present: RRR, +S1, +S2. Absent: diastolic murmur, gallop, rubs, systolic murmur - GI/Abdominal GI/Abdominal exam: Present: normal bowel sounds, soft, no peritoneal signs. Absent: distended, tenderness - Extremities Exam Extremities exam: Present: warm. Absent: calf tenderness, cyanotic, pedal edema - Neurological Exam Neurological exam: Present: alert, CN II-XII intact, oriented X3, no focal deficits. Absent: motor sensory deficit, facial droop, speech deficit Additional comments: proprioception in BLE preserved. - Psychiatric Psychiatric exam: Present: normal affect, normal mood - Skin Skin exam: Present: dry, intact Internal Medicine: Result - Labs CBC & Chem 7: 06/10/17 03:32 06/10/17 03:32 Labs: Short CBC 06/10/17 Range/Units 03:32 WBC 6.4 (4.3-11.1) K/mcL Hgb 14.0 (12.9-16.9) g/dL Hct 43.0 (37.5-50.1) % Plt Count 179 (140-400) K/mcL Neutrophils # 3.7 (1.6-8.9) K/mcL BMP 06/10/17 03:32 Sodium 147 H Potassium 3.2 L Chloride 105 Carbon Dioxide 30 H BUN 18 Creatinine 0.92 Glucose 88 Calcium 9.0 Liver Function 06/10/17 Range/Units 03:32 Total Bilirubin 1.3 H (0.2-1.2) mg/dL AST 26 (5-34) Units/L ALT 14 (0-55) Units/L Alkaline Phosphatase 136 H (38-126) Units/L Albumin 2.8 L (3.5-5.0) g/dL - ABG Interpretation ABG results: PT/INR, D-dimer PT 13.2 Seconds (9.4-12.1) H 06/08/17 11:42 Consult Discharge Plan - Plan Referrals: Oleg Rahman DO [Partnered Physician] - (web request 06/08/2017) <Christopher Loving - Last Filed: 06/10/17 17:41> Date of Encounter: 06/10/17 - Constitutional Vitals: Temp Pulse Resp BP Pulse Ox 97.5 F L 75 16 122/68 91 06/10/17 16:33 06/10/17 16:33 06/10/17 16:33 06/10/17 16:33 06/10/17 16:33 Internal Medicine: Result - Labs CBC & Chem 7: 06/10/17 03:32 06/10/17 03:32 Labs: Short CBC 06/10/17 Range/Units 03:32 WBC 6.4 (4.3-11.1) K/mcL Hgb 14.0 (12.9-16.9) g/dL Hct 43.0 (37.5-50.1) % Plt Count 179 (140-400) K/mcL Neutrophils # 3.7 (1.6-8.9) K/mcL BMP 06/10/17 03:32 Sodium 147 H Potassium 3.2 L Chloride 105 Carbon Dioxide 30 H BUN 18 Creatinine 0.92 Glucose 88 Calcium 9.0 Liver Function 06/10/17 Range/Units 03:32 Total Bilirubin 1.3 H (0.2-1.2) mg/dL AST 26 (5-34) Units/L ALT 14 (0-55) Units/L Alkaline Phosphatase 136 H (38-126) Units/L Albumin 2.8 L (3.5-5.0) g/dL - ABG Interpretation ABG results: PT/INR, D-dimer PT 13.2 Seconds (9.4-12.1) H 06/08/17 11:42 - Attending Attestation I examined this patient and my medical decision-making was reviewed with the Resident Physician. I agree with the documented findings, disposition and treatment plan as described except to the extent set forth below.
[2017-06-10] MEDS: Furosemide 40 MG/4 ML VIAL IVP SCH ×2 (10:20→16:46)
[2017-06-10] MEDS: levETIRAcetam 250 MG TABLET PO SCH ×2 (10:21→22:33)
[2017-06-10] MEDS: Aspirin 81 MG TAB.CHEW PO SCH (10:21)
[2017-06-10] MEDS: hydrALAZINE 25 MG TABLET PO SCH ×2 (10:22→16:46)
[2017-06-10] MEDS: Multivit/Ca/Min/Fe/FA 1 TAB TABLET PO SCH (10:23)
[2017-06-10] MEDS: Potassium Chloride Elixir 20 MEQ/15 ML UDC PO SCH ×2 (10:24→22:33)
[2017-06-11] MEDS: hydrALAZINE 25 MG TABLET PO SCH ×3 (00:56→15:22)
[2017-06-11 04:13] LABS: Basophils % 0.6 %; Eosinophils # 0.3 K/mcL (0.0-0.6); Eosinophils % 5.1 %; Hematocrit 44.1 % (37.5-50.1); Hemoglobin 14.1 g/dL (12.9-16.9); Immature Granulocytes % 0.3 % (0-4); Lymphocytes # 1.6 K/mcL (0.6-4.6); Lymphocytes % 24.8 %; Mean Corpuscular Hemoglobin 33.4 pg (28.0-33.3); Mean Corpuscular Volume 104.5 fL (83.0-100.0); Mean Platelet Volume 9.6 fL (9.4-12.4); Monocytes # 0.5 K/mcL (0.0-1.3); Monocytes % 7.7 %; Platelet Count 168 K/mcL (140-400); Red Blood Count 4.22 M/mcL (4.19-5.50); Red Cell Distribution Width 13.6 % (11.5-14.5); Segmented Neutrophils % 61.5 %
[2017-06-11 04:32] LABS: Alanine Aminotransferase 13 Units/L (0-55); Albumin 2.9 g/dL (3.5-5.0); Albumin/Globulin Ratio 0.8 (1.1-2.2); Alkaline Phosphatase 124 Units/L (38-126); Aspartate Amino Transferase 24 Units/L (5-34); BUN/Creatinine Ratio 19 (6-26); Bilirubin,Total 1.3 mg/dL (0.2-1.2); Blood Urea Nitrogen 21 mg/dL (8-26); Carbon Dioxide 32 mEq/L (19-29); Chloride 104 mEq/L (98-109); Globulin 3.5 g/dL (2.4-3.5); Glucose 104 mg/dL (70-99); Osmolality,Calculated 303 (280-300); Potassium 3.8 mEq/L (3.5-4.5); Sodium 145 mEq/L (136-145); Total Protein 6.4 g/dL (6.0-8.3); eGFR For African Americans > 60 (> 60); eGFR For Non-African Americans > 60 (> 60)
[2017-06-11] MEDS: Ipratropium/Albuterol Neb 3 ML IH SCH ×4 (06:22→22:39)
[2017-06-11] MEDS: *HR* Heparin 5,000 UNIT/ML VIAL SQ SCH ×3 (06:56→21:18)
--- NOTE | 2017-06-11 07:06 | Urology - Consult Note ---
Date of Encounter: 06/11/17 Time of Encounter: 07:04 - Assessment and Plan (1) Bloody discharge from penis Current Visit: Yes Status: Acute Assessment and plan: At this point, I'm unable to determine the etiology for the bloody discharge from his penis. It is likely from the anterior urethra as his urine is clear. Reviewing his records he was seen in the urology office in 2016 for a similar complaint and was found to have a UTI. I recommend sending his urine for culture which I ordered. I do not feel he requires repeat abdominal imaging at this time as the small amount of blood does not seem to be causing acute illness. As long as the bleeding remains minimal I do not feel he requires intervention especially with his advanced age, medical problems and dementia. This may be best observed. Okay to follow as an outpatient. (2) Bladder wall thickening Current Visit: Yes Status: Acute Assessment and plan: This may be an incidental finding. It family is concerned could consider outpatient cystoscopy but may consider observing because of advanced age, medical comorbidities and dementia. Urology CN:HPI Consult date: 06/10/17 Reason for consult Urology: Other History of present illness: 89-year-old male known to the urology service from a previous consult. He had multiple episodes of urinary tract infection with confusion and last year. Had been doing well at last check. Currently admitted for non- urologic issues and was discovered to have bleeding from his urethral meatus. Patient reports no problems urinating Last ct imaging on the patient was in January showed Heterogeneous appearance of the prostate, similar to prior. By report thereis history of prostate carcinoma. Bladder wall thickening also appears unchanged. Recommend correlation with urinalysis to exclude cystitis as a cause of bladder wall thickening. Past Med Surg Social Fam HX - Past Medical History Medical history: aortic aneurysm, atrial fibrillation, CVA, dementia, hypertension, other Psychiatric history: no psych history - Past Surgical History Surgical History: other (Aortic aneurysm repair) - Social History Smoking Status: Former smoker Packs per day: 1 ppd x many years, quit 35 yrs ago Smokeless Tobacco Status: No Alcohol use: occasionally Drug use: none - Family History Father Hx Family Cardiac Disorders: Yes Medications and Allergies Atorvastatin [Lipitor] 10 mg PO HS 01/28/16 [History] Donepezil HCl [Donepezil HCl Odt] 10 mg PO HS 01/28/16 [History] Losartan [Cozaar] 25 mg PO DAILY 01/28/16 [History] Memantine [Namenda] 10 mg PO BID 01/28/16 [History] Metoprolol [Lopressor] 12.5 mg PO DAILY 01/28/16 [History] Multivitamin/Iron/Folic Acid [Centrum Complete Multivit Tab] 1 tab PO DAILY 12/10 [History] Omeprazole [PriLOSEC] 20 mg PO DAILY 01/28/16 [History] [place]-3/Dha/Epa/Fish Oil [Fish Oil 1,000 mg Softgel] 1,000 mg PO DAILY 05/04/16 [History] Pyridoxine HCl [Vitamin B-6] 100 mg PO DAILY 10/03/16 [History] LevETIRAcetam [Keppra] 500 mg PO BID 06/08/17 [History] 3 Allergy/AdvReac Type Severity Reaction Status Date / Time levofloxacin [From Levaquin] Allergy See Verified 06/08/17 10:59 Comments Review of Systems - Constitutional no chills, no fever(s) - EENT Nose, mouth and throat: no dizziness - Cardiovascular no chest pain - Respiratory no cough - Genitourinary hematuria - Musculoskeletal back pain - Integumentary no erythema - Neurological confusion - Psychiatric no anxiety - Hematologic/Lymphatic easy bleeding - Allergic/Immunologic no throat swelling Exam Initial Vital Signs Temp Pulse Resp BP Pulse Ox 97.5 F L 90 20 183/89 90 06/08/17 10:59 06/08/17 10:59 06/08/17 10:59 06/08/17 10:59 06/08/17 10:59 - General physical appearance Present: no distress, chronically ill - Eyes Present: PERRL - ENT Present: normal nares - Neck Present: no masses - Respiratory Present: normal respiratory effort - Abdomen Abdomen: Present: soft - Genitourinary Penis: Present: circumsized, other (Uncircumcised phallus. Wide urethral meatus. Some skin discoloration surrounding the area. Visible blood at the meatus with a small clot. No obvious lesion or etiology for the bleeding. Incidentally urinal was present but had clear urine) - Integumentary Absent: no rash - Neurologic Present: disoriented Urology Results - Labs 06/11/17 03:56 06/11/17 03:56 Abnormal lab results MCV 104.5 fL (83.0-100.0) H 06/11/17 03:56 MCH 33.4 pg (28.0-33.3) H 06/11/17 03:56 PT 13.2 Seconds (9.4-12.1) H 06/08/17 11:42 Carbon Dioxide 32 mEq/L (19-29) H 06/11/17 03:56 Glucose 104 mg/dL (70-99) H 06/11/17 03:56 Calculated Osmolality 303 (280-300) H 06/11/17 03:56 Total Bilirubin 1.3 mg/dL (0.2-1.2) H 06/11/17 03:56 Troponin I 0.04 ng/mL (0-0.03) H* 06/08/17 11:42 B-Natriuretic Peptide 1037 pg/mL (0-100) H 06/08/17 11:42 Albumin 2.9 g/dL (3.5-5.0) L 06/11/17 03:56 Albumin/Globulin Ratio 0.8 (1.1-2.2) L 06/11/17 03:56 Vitamin B12 1847 pg/mL (213-816) H 06/10/17 03:32 Diabetes panel 06/11/17 Range/Units 03:56 Sodium 145 (136-145) mEq/L Potassium 3.8 (3.5-4.5) mEq/L Chloride 104 (98-109) mEq/L Carbon Dioxide 32 H (19-29) mEq/L BUN 21 (8-26) mg/dL Creatinine 1.08 (0.72-1.25) mg/dL Glucose 104 H (70-99) mg/dL Calcium 9.0 (8.6-10.8) mg/dL AST 24 (5-34) Units/L ALT 13 (0-55) Units/L Alkaline Phosphatase 124 (38-126) Units/L Albumin 2.9 L (3.5-5.0) g/dL Calcium panel 06/11/17 Range/Units 03:56 Calcium 9.0 (8.6-10.8) mg/dL Albumin 2.9 L (3.5-5.0) g/dL Pituitary panel 06/11/17 Range/Units 03:56 Sodium 145 (136-145) mEq/L Potassium 3.8 (3.5-4.5) mEq/L Chloride 104 (98-109) mEq/L Carbon Dioxide 32 H (19-29) mEq/L BUN 21 (8-26) mg/dL Creatinine 1.08 (0.72-1.25) mg/dL Glucose 104 H (70-99) mg/dL Calcium 9.0 (8.6-10.8) mg/dL Adrenal panel 06/11/17 Range/Units 03:56 Sodium 145 (136-145) mEq/L Potassium 3.8 (3.5-4.5) mEq/L Chloride 104 (98-109) mEq/L Carbon Dioxide 32 H (19-29) mEq/L BUN 21 (8-26) mg/dL Creatinine 1.08 (0.72-1.25) mg/dL Glucose 104 H (70-99) mg/dL Calcium 9.0 (8.6-10.8) mg/dL Total Bilirubin 1.3 H (0.2-1.2) mg/dL AST 24 (5-34) Units/L ALT 13 (0-55) Units/L Alkaline Phosphatase 124 (38-126) Units/L Albumin 2.9 L (3.5-5.0) g/dL All other labs normal. Consult Discharge Plan - Plan Referrals: Oleg Rahman DO [Partnered Physician] - (web request 06/08/2017)
[2017-06-11] MEDS: Potassium Chloride Elixir 20 MEQ/15 ML UDC PO SCH ×2 (08:18→21:18)
[2017-06-11] MEDS: levETIRAcetam 250 MG TABLET PO SCH ×2 (08:19→21:18)
[2017-06-11] MEDS: Aspirin 81 MG TAB.CHEW PO SCH (08:19)
[2017-06-11] MEDS: Multivit/Ca/Min/Fe/FA 1 TAB TABLET PO SCH (08:19)
[2017-06-11] MEDS: Furosemide 40 MG/4 ML VIAL IVP SCH ×2 (08:23→15:22)
--- NOTE | 2017-06-11 11:39 | Internal Med Progress Note ---
<Oleg Barriga - Last Filed: 06/11/17 11:37> Date of Encounter: 06/11/17 Time of Encounter: 11:37 - Assessment and plan (1) CHF (congestive heart failure) Current Visit: No Status: Chronic Assessment and plan: Symptomatically improving. Echo is essentially unchanged. Continue IV diuresis and blood pressure control. Qualifiers: Congestive heart failure type: combined Congestive heart failure chronicity : acute on chronic Qualified Code(s): I50.43 - Acute on chronic combined systolic (congestive) and diastolic (congestive) heart failure (2) HTN (hypertension) Current Visit: Yes Status: Acute Assessment and plan: Much improved from admission. Continue to monitor and titrate medications as needed. Qualifiers: Hypertension type: essential hypertension Qualified Code(s): I10 - Essential (primary) hypertension (3) Acute hypoxemic respiratory failure Current Visit: Yes Status: Acute Assessment and plan: Likely secondary to acute CHF exacerbation. Resolved at this time. Continue to monitor and supplemental oxygen as needed. (4) Afib Current Visit: Yes Status: Acute Assessment and plan: Chronic. Rate controlled. No anticoagulation due to history of GI bleed and intracranial bleed. Continue cardiac monitoring. Qualifiers: Atrial fibrillation type: chronic Qualified Code(s): I48.2 - Chronic atrial fibrillation (5) Bloody discharge from penis Current Visit: Yes Status: Acute Assessment and plan: Seen by urology. They feel that patient has some bleeding from the distal urethra as the patient's urine has been clear. No need for further workup. - Subjective Interval history: Patient seen and examined at bedside. Patient states that he feels better today. He feels his shortness of breath is improved. He denies chest pain, lower extremity edema. - Constitutional Vitals: Temp Pulse Resp BP Pulse Ox 97.3 F L 59 16 107/66 97 06/11/17 11:00 06/11/17 11:00 06/11/17 11:00 06/11/17 11:00 06/11/17 10:16 General appearance: Present: A&O X 3, no acute distress, underweight - Respiratory Respiratory exam: Present: CTAB. Absent: rales, rhonchi, wheezes - Cardiovascular Cardiovascular exam: Present: RRR. Absent: gallop, rubs, systolic murmur - GI/Abdominal GI/Abdominal exam: Present: normal bowel sounds, soft. Absent: distended, tenderness - Extremities Exam Extremities exam: Present: warm. Absent: pedal edema, tenderness - Neurological Exam Neurological exam: Present: alert, CN II-XII intact, oriented X3, no focal deficits Internal Medicine: Result - Labs CBC & Chem 7: 06/11/17 03:56 06/11/17 03:56 Labs: Short CBC 06/11/17 Range/Units 03:56 WBC 6.5 (4.3-11.1) K/mcL Hgb 14.1 (12.9-16.9) g/dL Hct 44.1 (37.5-50.1) % Plt Count 168 (140-400) K/mcL Neutrophils # 4.0 (1.6-8.9) K/mcL BMP 06/11/17 03:56 Sodium 145 Potassium 3.8 Chloride 104 Carbon Dioxide 32 H BUN 21 Creatinine 1.08 Glucose 104 H Calcium 9.0 Liver Function 06/11/17 Range/Units 03:56 Total Bilirubin 1.3 H (0.2-1.2) mg/dL AST 24 (5-34) Units/L ALT 13 (0-55) Units/L Alkaline Phosphatase 124 (38-126) Units/L Albumin 2.9 L (3.5-5.0) g/dL - ABG Interpretation ABG results: PT/INR, D-dimer PT 13.2 Seconds (9.4-12.1) H 06/08/17 11:42 Consult Discharge Plan - Plan Referrals: Oleg Rahman DO [Partnered Physician] - (web request 06/08/2017) <Christopher Loving - Last Filed: 06/11/17 17:42> Date of Encounter: 06/11/17 - Constitutional Vitals: Temp Pulse Resp BP Pulse Ox 97.4 F L 73 18 119/63 95 06/11/17 16:48 06/11/17 16:48 06/11/17 16:48 06/11/17 16:48 06/11/17 16:48 Internal Medicine: Result - Labs CBC & Chem 7: 06/11/17 03:56 06/11/17 03:56 Labs: Short CBC 06/11/17 Range/Units 03:56 WBC 6.5 (4.3-11.1) K/mcL Hgb 14.1 (12.9-16.9) g/dL Hct 44.1 (37.5-50.1) % Plt Count 168 (140-400) K/mcL Neutrophils # 4.0 (1.6-8.9) K/mcL BMP 06/11/17 03:56 Sodium 145 Potassium 3.8 Chloride 104 Carbon Dioxide 32 H BUN 21 Creatinine 1.08 Glucose 104 H Calcium 9.0 Liver Function 06/11/17 Range/Units 03:56 Total Bilirubin 1.3 H (0.2-1.2) mg/dL AST 24 (5-34) Units/L ALT 13 (0-55) Units/L Alkaline Phosphatase 124 (38-126) Units/L Albumin 2.9 L (3.5-5.0) g/dL - ABG Interpretation ABG results: PT/INR, D-dimer PT 13.2 Seconds (9.4-12.1) H 06/08/17 11:42 - Attending Attestation I examined this patient and my medical decision-making was reviewed with the Resident Physician. I agree with the documented findings, disposition and treatment plan as described except to the extent set forth below. We will get him to alf facility tomorrow.
[2017-06-12] MEDS: hydrALAZINE 25 MG TABLET PO SCH ×2 (01:02→08:53)
[2017-06-12] MEDS: Ipratropium/Albuterol Neb 3 ML IH SCH ×2 (03:31→09:41)
[2017-06-12 05:49] LABS: Basophils # 0.1 K/mcL (0.0-0.2); Basophils % 1.1 %; Eosinophils # 0.3 K/mcL (0.0-0.6); Eosinophils % 6.1 %; Hematocrit 43.9 % (37.5-50.1); Hemoglobin 14.1 g/dL (12.9-16.9); Immature Granulocytes % 0.2 % (0-4); Immature Platelets 2.2 % (1.1-6.1); Lymphocytes # 1.6 K/mcL (0.6-4.6); Lymphocytes % 29.3 %; Mean Corpuscular HGB Conc 32.1 g/dL (31.6-35.5); Mean Corpuscular Hemoglobin 33.7 pg (28.0-33.3); Mean Corpuscular Volume 104.8 fL (83.0-100.0); Mean Platelet Volume 9.8 fL (9.4-12.4); Monocytes # 0.5 K/mcL (0.0-1.3); Monocytes % 8.8 %; Neutrophils # 3.1 K/mcL (1.6-8.9); Platelet Count 160 K/mcL (140-400); Red Blood Count 4.19 M/mcL (4.19-5.50); Red Cell Distribution Width 13.2 % (11.5-14.5); Segmented Neutrophils % 54.5 %
[2017-06-12 06:04] LABS: Alanine Aminotransferase 34 Units/L (0-55); Alkaline Phosphatase 139 Units/L (38-126); BUN/Creatinine Ratio 23 (6-26); Bilirubin,Direct 0.6 mg/dL (0.0-0.5); Bilirubin,Indirect 0.8 mg/dL (0.0-1.2); Bilirubin,Total 1.4 mg/dL (0.2-1.2); Blood Urea Nitrogen 26 mg/dL (8-26); Calcium 9.1 mg/dL (8.6-10.8); Carbon Dioxide 32 mEq/L (19-29); Chloride 104 mEq/L (98-109); Glucose 99 mg/dL (70-99); Osmolality,Calculated 301 (280-300); Potassium 4.3 mEq/L (3.5-4.5); Sodium 143 mEq/L (136-145); Total Protein 6.7 g/dL (6.0-8.3); eGFR For African Americans > 60 (> 60); eGFR For Non-African Americans > 60 (> 60)
[2017-06-12] MEDS: *HR* Heparin 5,000 UNIT/ML VIAL SQ SCH (06:22)
[2017-06-12 06:49] LABS: Aspartate Amino Transferase 61 Units/L (5-34)
[2017-06-12 07:11] VITALS: BP 125/74
--- NOTE | 2017-06-12 07:54 | Discharge Summary ---
<Oleg Barriga - Last Filed: 06/12/17 07:51> Date of Encounter: 06/12/17 Time of Encounter: 07:51 - Discharge Diagnosis (1) CHF (congestive heart failure) Priority: Primary Status: Acute Qualifiers: Congestive heart failure type: combined Congestive heart failure chronicity : acute on chronic Qualified Code(s): I50.43 - Acute on chronic combined systolic (congestive) and diastolic (congestive) heart failure (2) HTN (hypertension) Priority: Secondary Status: Chronic Qualifiers: Hypertension type: essential hypertension Qualified Code(s): I10 - Essential (primary) hypertension (3) Acute hypoxemic respiratory failure Priority: Primary Status: Resolved (4) Afib Priority: Secondary Status: Chronic Qualifiers: Atrial fibrillation type: chronic Qualified Code(s): I48.2 - Chronic atrial fibrillation (5) Bloody discharge from penis Priority: Secondary Status: Chronic - Discharge Medications Prescriptions: Furosemide [Lasix] 20 mg PO DAILY #60 tablet Potassium Chloride 10 meq PO DAILY #30 tab.er.prt Home Medications: Atorvastatin [Lipitor] 10 mg PO HS 01/28/16 [History] Donepezil HCl [Donepezil HCl Odt] 10 mg PO HS 01/28/16 [History] Losartan [Cozaar] 25 mg PO DAILY 01/28/16 [History] Memantine [Namenda] 10 mg PO BID 01/28/16 [History] Metoprolol [Lopressor] 12.5 mg PO DAILY 01/28/16 [History] Multivitamin/Iron/Folic Acid [Centrum Complete Multivit Tab] 1 tab PO DAILY 12/10 [History] Omeprazole [PriLOSEC] 20 mg PO DAILY 01/28/16 [History] [place]-3/Dha/Epa/Fish Oil [Fish Oil 1,000 mg Softgel] 1,000 mg PO DAILY 05/04/16 [History] Pyridoxine HCl [Vitamin B-6] 100 mg PO DAILY 10/03/16 [History] LevETIRAcetam [Keppra] 500 mg PO BID 06/08/17 [History] Furosemide [Lasix] 20 mg PO DAILY #60 tablet 06/12/17 [Rx] Potassium Chloride 10 meq PO DAILY #30 tab.er.prt 06/12/17 [Rx] Allergies/Adverse Reactions: 3 Allergy/AdvReac Type Severity Reaction Status Date / Time levofloxacin [From Levaquin] Allergy See Verified 06/08/17 10:59 Comments Date of admission: 06/08/17 13:37 Primary care physician: PCP NONE Consults: 06/08/17 14:31 Consult to Nutrition [CONS] Routine Comment: Consulting Provider: NUTRITION Reason for Dietary Consult: MST Score 06/08/17 17:[address] Contractor [CONS] Routine Reason for SW Consult: Concerned about patient's care due to dementia and wifes forgetfullness. 06/09/17 12:54 Consult to Occupational Therapy [CONS] Routine Comment: Evaluate, develop and implement POC Reason for Consult: weakness, possible need for home health Consult to Physical Therapy [CONS] Routine Comment: Evaluate, develop and implement POC Reason for Consult: weakness possible need for home health 06/10/17 13:22 Consult to Urology [CONS] Routine Consulting Provider: Urology Willa Reason for Consult: Blood at urethral meatus, Hx of Bladder wall thickening not followed up on Time Notified: 14:20 Call Completed: Yes Discharging clinician: Oleg Barriga Anticipated date of discharge: 06/12/17 - Patient Status Disposition: Transfer SNF Condition: Fair Functional capacity at discharge: uses cane/walker Overall status at discharge: patient is progressing back to baseline - Discharge Instructions Instructions: Myocardial Infarction (DC), Heart Failure (DC), Atrial Fibrillation (DC), Chest Pain (DC), Acute Respiratory Distress Syndrome (DC), Urinary Tract Infection in Men (DC), Chronic Hypertension (DC) Follow Up With: Oleg Rahman DO [Partnered Physician] - (web request 06/08/2017) Additional Instructions: Please follow up with your PCP in one week. Please continue your home medications. Please take Lasix daily. Please take potassium daily. Please limit your fluid intake to no more than 2 L daily. Please return for any new or worsening symptoms. - Diet and Activity Activity: increase activity as tolerated Diet: low salt diet (2L fluid restriction) Interval History: Patient seen and examined at bedside. Patient has no complaints at this time. He states he does not feel short of breath and denies chest pain. He is eating and drinking well. He has no complaints. Hospital course: Mr. Rahman is a 89 year old male with history of hypertension, dementia presented with shortness of breath. He is found to be mildly hypoxic. Chest x- ray showed evidence of interstitial edema concerning for CHF. Echocardiogram revealed a low normal EF with indeterminate diastolic dysfunction. Patient was treated with IV diuresis and responded well. Patient was asymptomatic at time of discharge. Patient will be discharged to [facility] in stable condition. Patient will be discharged on a diuretic regimen - Time Spent with Patient Total time spent providing and/or coordinating discharge services: - Constitutional Vitals: Temp Pulse Resp BP Pulse Ox 97.5 F L 65 16 125/74 95 06/12/17 07:10 06/12/17 07:10 06/12/17 07:10 06/12/17 07:10 06/12/17 07:10 General appearance: Present: A&O X 3, no acute distress, underweight - Respiratory Respiratory exam: Present: CTAB. Absent: rales, rhonchi, wheezes - Cardiovascular Cardiovascular exam: Present: RRR. Absent: gallop, rubs, systolic murmur - GI/Abdominal GI/Abdominal exam: Present: normal bowel sounds, soft. Absent: distended, tenderness - Extremities Exam Extremities exam: Present: warm. Absent: pedal edema, tenderness <Fabienne,Christopher P - Last Filed: 06/12/17 18:38> Date of Encounter: 06/12/17 Date of admission: 06/08/17 13:37 Primary care physician: PCP NONE Consults: 06/08/17 14:31 Consult to Nutrition [CONS] Routine Comment: Consulting Provider: NUTRITION Reason for Dietary Consult: MST Score 06/08/17 17:[address] Contractor [CONS] Routine Reason for SW Consult: Concerned about patient's care due to dementia and wifes forgetfullness. 06/09/17 12:54 Consult to Occupational Therapy [CONS] Routine Comment: Evaluate, develop and implement POC Reason for Consult: weakness, possible need for home health Consult to Physical Therapy [CONS] Routine Comment: Evaluate, develop and implement POC Reason for Consult: weakness possible need for home health 06/10/17 13:22 Consult to Urology [CONS] Routine Consulting Provider: Urology Willa Reason for Consult: Blood at urethral meatus, Hx of Bladder wall thickening not followed up on Time Notified: 14:20 Call Completed: Yes Hospital course: Mr. Rahman is a 89 year old male - Time Spent with Patient Total time spent providing and/or coordinating discharge services: - Constitutional Vitals: Temp Pulse Resp BP Pulse Ox 97.5 F L 65 16 125/74 95 06/12/17 07:10 06/12/17 07:10 06/12/17 09:41 06/12/17 07:10 06/12/17 09:41 - Attending Attestation I examined this patient and my medical decision-making was reviewed with the Resident Physician. I agree with the documented findings, disposition and treatment plan as described except to the extent set forth below.
--- NOTE | 2017-06-12 08:02 | Physician Discharge Referral ---
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 Prognosis: Fair Aware of Diagnosis: Family Aware of Prognosis: Family - Transfer Medications Prescriptions: Furosemide [Lasix] 20 mg PO DAILY #60 tablet Potassium Chloride 10 meq PO DAILY #30 tab.er.prt Home Medications: Atorvastatin [Lipitor] 10 mg PO HS 01/28/16 [History] Donepezil HCl [Donepezil HCl Odt] 10 mg PO HS 01/28/16 [History] Losartan [Cozaar] 25 mg PO DAILY 01/28/16 [History] Memantine [Namenda] 10 mg PO BID 01/28/16 [History] Metoprolol [Lopressor] 12.5 mg PO DAILY 01/28/16 [History] Multivitamin/Iron/Folic Acid [Centrum Complete Multivit Tab] 1 tab PO DAILY 12/10 [History] Omeprazole [PriLOSEC] 20 mg PO DAILY 01/28/16 [History] Onia-3/Dha/Epa/Fish Oil [Fish Oil 1,000 mg Softgel] 1,000 mg PO DAILY 05/04/16 [History] Pyridoxine HCl [Vitamin B-6] 100 mg PO DAILY 10/03/16 [History] LevETIRAcetam [Keppra] 500 mg PO BID 06/08/17 [History] Furosemide [Lasix] 20 mg PO DAILY #60 tablet 06/12/17 [Rx] Potassium Chloride 10 meq PO DAILY #30 tab.er.prt 06/12/17 [Rx] Allergies/Adverse Reactions: 3 Allergy/AdvReac Type Severity Reaction Status Date / Time levofloxacin [From Levaquin] Allergy See Verified 06/08/17 10:59 Comments - Respiratory Orders None Smoking Cessation: Smoking cessation has been advised. For more information, call the [place] [employer] Tobacco Quit Line at 3-491-GIRN-NOW. - Ancillary Orders May use pressure relief devices daily prn - Advance Directives Living Will: Yes Power of Maintenance Electrician: Yes Code Status: Full Code - Mobility Orders Ambulate (with assistance) - Rehabiliation Orders Rehab Orders: Evaluation for Physical Therapy, Evaluation for Occupational Therapy - Treatments Skin tear care topically daily PRN per policy, May check for fecal impaction rectally daily PRN - Diet Orders No Added Salt (CALI), Cardiac (2L fuid restriction) CERTIFICATION: I certify that the transfer of the above named patient to an Extended Care Facility is necessary for the continuing treatment of the diagnosis listed. The above information is true and accurate reflection of patient's current condition. Confidential - Redisclosure prohibited without a patient's written consent. <Christopher Loving P - Last Filed: 06/12/17 18:39> - Respiratory Orders Smoking Cessation: Smoking cessation has been advised. For more information, call the [place] Tobacco Quit Line at 9-137-CVLT-NOW. CERTIFICATION: I certify that the transfer of the above named patient to an Extended Care Facility is necessary for the continuing treatment of the diagnosis listed. The above information is true and accurate reflection of patient's current condition. Confidential - Redisclosure prohibited without a patient's written consent.
[2017-06-12 08:47] LABS: Albumin 3.2 g/dL (3.5-5.0); Albumin/Globulin Ratio 0.9 (1.1-2.2); Globulin 3.5 g/dL (2.4-3.5)
[2017-06-12] MEDS: Multivit/Ca/Min/Fe/FA 1 TAB TABLET PO SCH (08:53)
[2017-06-12] MEDS: levETIRAcetam 250 MG TABLET PO SCH (08:53)
[2017-06-12] MEDS: Aspirin 81 MG TAB.CHEW PO SCH (08:54)
[2017-06-12] MEDS: Potassium Chloride Elixir 20 MEQ/15 ML UDC PO SCH (08:54)
[2017-06-12] MEDS: Furosemide 40 MG/4 ML VIAL IVP SCH (08:55)
== END 2017-06-12 13:50 | DRG 291 ==
LOC: EMEROO 10:58 → 2ANU 10:58
PROVIDERS: ADMIT Internal Medicine; ATTEND Internal Medicine